=== PATIENT | female | born 1940 | race Caucasian/White ===

== ENCOUNTER 2018-09-22 11:06 | Inpatient (IN) | payer MEDICARE, OTHER ==
[2018-09-22] MEDS ORDERED: HYDROcodone/APAP 5-325MG 1 EACH TAB PO STA (11:56)
--- NOTE | 2018-09-22 12:19 | ED ---
General Adult HPI - General Chief complaint: Fall Stated complaint: fall, lt leg pain Time Seen by Provider: 09/22/18 11:15 Source: patient Mode of arrival: wheelchair Limitations: no limitations - History of Present Illness Initial comments: 78-year-old female presents to the emergency department for a chief complaint of fall that occurred about one week prior to arrival. Patient states she slipped and fell on the left hip. States she has been having pain in the left hip since that time. She has been walking on the hip and states that yesterday she went shopping and it may have irritated it more. Patient also complains of left knee pain which is lateral and anterior. She also believes this is from the fall. She denies any back pain. Denies hitting her head. Denies loss of consciousness.Patient has no other complaints at this time including shortness of breath, chest pain, abdominal pain, nausea or vomiting, headache, or visual changes. - Related Data Home Medications Medication Instructions Recorded Confirmed Sertraline [Zoloft] 50 mg PO HS 01/31/15 09/22/18 Simvastatin [Zocor] 20 mg PO HS 01/31/15 09/22/18 Triamterene-Hctz 37.5-25Mg 1 cap PO DAILY 01/31/15 09/22/18 [Dyazide] ALPRAZolam [Xanax] 0.5 mg PO DAILY 09/22/18 09/22/18 ALPRAZolam [Xanax] 1 mg PO HS 09/22/18 09/22/18 Acetaminophen/Diphenhydramine 2 tab PO HS 09/22/18 09/22/18 [Tylenol PM 500-25mg] Cholecalciferol [Vitamin D3] 1,000 unit PO DAILY 09/22/18 09/22/18 Naproxen Sodium [Aleve] 220 mg PO BID 09/22/18 09/22/18 Sertraline [Zoloft] 100 mg PO DAILY 09/22/18 09/22/18 Allergies Allergy/AdvReac Type Severity Reaction Status Date / Time Penicillins Allergy Unknown Verified 09/22/18 11:38 Review of Systems ROS Statement: Those systems with pertinent positive or pertinent negative responses have been documented in the HPI. ROS Other: All systems not noted in ROS Statement are negative. Past Medical History Past Medical History: Hyperlipidemia, Hypertension History of Any Multi-Drug Resistant Organisms: None Reported Past Surgical History: Appendectomy, Hysterectomy Past Psychological History: Anxiety, Depression Smoking Status: Current every day smoker Past Alcohol Use History: Occasional Past Drug Use History: None Reported - Past Family History Father Family Medical History: Myocardial Infarction ([place]) Additional Family Medical History / Comment(s): Father of a [place] at the age of 80yrs. Mother Family Medical History: Cancer Additional Family Medical History / Comment(s): Mother survived multiple types of cancers. General Exam Limitations: no limitations General appearance: alert, in no apparent distress Head exam: Present: atraumatic, normocephalic, normal inspection Eye exam: Present: normal appearance, PERRL, EOMI. Absent: scleral icterus, conjunctival injection, periorbital swelling ENT exam: Present: normal exam, mucous membranes moist Neck exam: Present: normal inspection, full ROM. Absent: tenderness, meningismus, lymphadenopathy Respiratory exam: Present: normal lung sounds bilaterally. Absent: respiratory distress, wheezes, rales, rhonchi, stridor Cardiovascular Exam: Present: regular rate, normal rhythm, normal heart sounds. Absent: bradycardia, tachycardia, irregular rhythm GI/Abdominal exam: Present: soft, normal bowel sounds. Absent: distended, tenderness, guarding, rebound, rigid Extremities exam: Present: tenderness (Minimal tenderness noted to the lateral aspect of the left hip and left anterior knee), normal capillary refill (Capillary refill less than 2 seconds, DP pulse 2+ in the left lower extremity), other (Sensation intact in the left lower extremity). Absent: full ROM (Patient has 90 of flexion of the left hip until she starts to have pain. Limited external rotation of the left hip. Full range of motion of the left knee.), calf tenderness (Tenderness, negative Homans sign, no erythema or edema noted in the left lower extremity) Back exam: Absent: CVA tenderness (R), CVA tenderness (L), vertebral tenderness Neurological exam: Present: alert, oriented X3, CN II-XII intact Psychiatric exam: Present: normal affect, normal mood Course Vital Signs 09/22/18 09/22/18 09/22/18 11:09 13:53 15:03 Temperature 97.7 F 98.2 F 98.1 F Pulse Rate 113 H 74 89 Respiratory 18 18 18 Rate Blood Pressure 137/79 133/60 142/63 O2 Sat by Pulse 94 L 93 L 95 Oximetry - Reevaluation(s) Reevaluation #1: 09/22/18 14:57 Offered patient IV pain medication which she refused. Patient did eventually degree to take an [place]. EKG Findings - EKG Comments: EKG Findings:: Normal sinus rhythm, ventricular rate 79, NC Interval 158, QTC 435 Medical Decision Making - Medical Decision Making 78-year-old female with a past medical history of hyperlipidemia, hypertension presents to the emergency department for chief complaint of left hip and knee pa in after a fall occurred 1 week ago. Patient has been ambulatory on the hip since that time. Patient was offered IV morphine but refused this. She did eventually agree to take a [place]. Patient does have pain when hip is flexed to 90 as well as externally rotated. Neurovascular intact, DP pulse 2+ and equal bilaterally. X-ray of the left hip shows a subacute left subcapital femoral neck impaction fracture. There appears to only be 2 mm of foreshortening and overall this is nondisplaced. CBC CMP chest x-ray and EKG were all obtained for surgery. Dr. Ayala was called by Dr. Cruz who will admit the patient for hip fracture. - Lab Data Result diagrams: 09/22/18 13:10 09/22/18 13:10 Disposition Clinical Impression: Hip fracture Disposition: ADMITTED IP TO THIS HOSP Condition: Good Is patient prescribed a controlled substance at d/c from ED?: No Time of Disposition: 13:25
--- NOTE | 2018-09-22 12:27 | XR ---
EXAMINATION TYPE: XR Hip LT and AP Pelvis DATE OF EXAM: 09/22/2018 COMPARISON: NONE HISTORY: Pelvic and left hip pain after fall 2 weeks ago. TECHNIQUE: A single AP view of the pelvis is obtained. Two views of the left hip are obtained. FINDINGS: There is an impacted left subcapital femoral neck fracture. There appears to be only 2 mm o f foreshortening. This is overall nondisplaced. The remainder the pelvis demonstrates no acute fractu re. 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 Mild degenerative changes of the lum bosacral junction are noted. IMPRESSION: Subacute left subcapital femoral neck impaction fracture.
--- NOTE | 2018-09-22 12:28 | XR ---
EXAMINATION TYPE: XR tibia fibula LT DATE OF EXAM: 09/22/2018 CLINICAL HISTORY: Left tibia and fibula pain after fall TECHNIQUE: Two views of the left leg are obtained. COMPARISON: None. FINDINGS: There is no acute fracture or dislocation seen in the left tibia or fibula. The left knee and ankle joints appear within normal limits. The overlying soft tissue appears unremarkable. IMPRESSION: There is no acute fracture or dislocation seen in the left tibia or fibula.
[2018-09-22] MEDS ORDERED: ONDANSETRON 4 MG/2 ML VIAL IVP PRN (13:22)
[2018-09-22] MEDS ORDERED: NALOXONE 0.4 MG/ML 1 ML VIAL IV PRN ×2 (13:22→19:55)
--- NOTE | 2018-09-22 13:33 | XR ---
EXAMINATION TYPE: XR chest 2V DATE OF EXAM: 09/22/2018 COMPARISON: 02/03/2014 HISTORY: Cough, chest pain and COPD TECHNIQUE: Frontal and lateral views of the chest are obtained. FINDINGS: There is no focal air space opacity, pleural effusion, or pneumothorax seen. Flattening of the diaphragms on the lateral view suggests underlying COPD. The cardiac silhouette size is within n ormal limits. Diffuse osseous demineralization is noted. The osseous structures are intact. Calcifi ed density within the left breast is noted as seen on the prior 2013. IMPRESSION: No acute cardiopulmonary process. Radiographic sequela of COPD.
[2018-09-22 13:34] LABS: Partial Thromboplastin Time 29.9 sec (22.0-30.0); Prothrombin Time 10.5 sec (9.0-12.0)
[2018-09-22 13:37] LABS: Basophils # (A) 0.1 k/uL (0-0.2); Basophils % (A) 1 %; Eosinophils # (A) 0.1 k/uL (0-0.7); Eosinophils % (A) 1 %; HCT 43.9 % (34.0-46.0); HGB 14.3 gm/dL (11.4-16.0); Lymphocytes # (A) 0.9 k/uL (1.0-4.8); Lymphocytes % (A) 10 %; MCH 29.1 pg (25.0-35.0); MCHC 32.5 g/dL (31.0-37.0); MCV 89.3 fL (80.0-100.0); Mean Platelet Volume 7.6; Monocytes # (A) 1.1 k/uL (0-1.0); Monocytes % (A) 12 %; Neutrophils # (A) 6.9 k/uL (1.3-7.7); Neutrophils % (A) 74 %; Platelet Count 301 k/uL (150-450); RBC 4.92 m/uL (3.80-5.40); RDW 13.7 % (11.5-15.5); WBC 9.3 k/uL (3.8-10.6)
[2018-09-22 13:44] LABS: ALT 21 U/L (9-52); AST 25 U/L (14-36); Albumin 4.5 g/dL (3.5-5.0); Alkaline Phosphatase 83 U/L (38-126); Anion Gap 13 mmol/L; Blood Urea Nitrogen 17 mg/dL (7-17); Calcium 9.6 mg/dL (8.4-10.2); Carbon Dioxide 21 mmol/L (22-30); Chloride 99 mmol/L (98-107); Glucose 92 mg/dL (74-99); Sodium 133 mmol/L (137-145); Total Bilirubin 0.8 mg/dL (0.2-1.3); Total Protein 7.8 g/dL (6.3-8.2)
[2018-09-22 13:46] LABS: Potassium 4.4 mmol/L (3.5-5.1)
[2018-09-22 15:16] VITALS: BMI 23.0
--- NOTE | 2018-09-22 15:35 | P.HPOR ---
History of Present Illness H&P Date: 09/22/18 Chief Complaint: Left hip pain s/p fall patient has very pleasant 78-year-old female who sustained a fall about a week and a half ago. She has had left hip pain since that time. She was just trying to let her dog out and turned and slipped and fell onto her left hip. She denies any loss of consciousness. Denies any her head. She has any prior pain in her hip before the fall. She says she is normally a community and later without any assistance or devices. She usually drives and gets around quite well. She has no history of any hip pain. She denies any numbness or tingling. She says that she was able to walk around over the past week and half but has been having irritation and pain at her left hip and decided to have this checked out. She presented to the emergency room and was found to have a nondisplaced impacted left femoral neck fracture. We are consult in in this regard. denies any fevers chills night sweats. Denies any headaches loss conscious. Denies any numbness tingling lower extremity. Denies any changes in bowel bladder function. Review of Systems as stated in HPI. Denies any chest pain shortness breath. Denies any abdominal pain. Denies any recent illness. Denies any nausea vomiting. She says she might have had a little cold yesterday. Past Medical History Past Medical History: Hyperlipidemia Additional Past Medical History / Comment(s): Past gastric ulcer, kidney stones as a teen, diverticular disease, past edema ankles, sinus problems. History of Any Multi-Drug Resistant Organisms: None Reported Past Surgical History: Appendectomy, Hysterectomy Additional Past Surgical History / Comment(s): Colonoscopies/benign polypectomy, L breast core bx, L elbow surgery for tennis elbow, L wrist ganglion cyst removed and bilateral feet, L tear duct procedure to get it open, lesion removed from nose-pt states one doctor said it was cancer and another said it wasn't. Past Anesthesia/Blood Transfusion Reactions: No Reported Reaction Past Psychological History: Anxiety, Depression Additional Psychological History / Comment(s): Pt resides with her significant other. She has been using his cane lately d/t fall and L hip/knee pain. Pt is otherwise independent. Smoking Status: Current every day smoker Past Alcohol Use History: Occasional Additional Past Alcohol Use History / Comment(s): Ptstarted smoking in 1964 and the amount she smokes varies depending on what she is doing. Past Drug Use History: None Reported - Past Family History Father Family Medical History: Myocardial Infarction ([place]) Additional Family Medical History / Comment(s): Father of a [place] at the age of 80yrs. Mother Family Medical History: Cancer Additional Family Medical History / Comment(s): Mother survived multiple types of cancers. Medications and Allergies Home Medications Medication Instructions Recorded Confirmed Type Sertraline [Zoloft] 50 mg PO HS 01/31/15 09/22/18 History Simvastatin [Zocor] 20 mg PO HS 01/31/15 09/22/18 History Triamterene-Hctz 37.5-25Mg 1 cap PO DAILY 01/31/15 09/22/18 History [Dyazide] ALPRAZolam [Xanax] 0.5 mg PO DAILY 09/22/18 09/22/18 History ALPRAZolam [Xanax] 1 mg PO HS 09/22/18 09/22/18 History Acetaminophen/Diphenhydramine 2 tab PO HS 09/22/18 09/22/18 History [Tylenol PM 500-25mg] Cholecalciferol [Vitamin D3] 1,000 unit PO DAILY 09/22/18 09/22/18 History Naproxen Sodium [Aleve] 220 mg PO BID 09/22/18 09/22/18 History Sertraline [Zoloft] 100 mg PO DAILY 09/22/18 09/22/18 History Allergies Allergy/AdvReac Type Severity Reaction Status Date / Time Penicillins Allergy Unknown Verified 09/22/18 11:38 Physical Examination Osteopathic Statement: *. No significant issues noted on an osteopathic structural exam other than those noted in the History and Physical/Consult. - Hip left Gait: other (at the patient's left hip she is able to move her hip in bed. She is able lift her leg up off the bed but has pain in her groin with this. She has pain with internal/external rotation her left hip. There is no deformity or shortening. Her thigh and calf are soft nontender. She has sustained dorsal to plantar flexion and EHL bilateral lower extremity. Her right lower extremity has no pain with active passive range motion. Abdomen soft nontender. Upper extremities have full active passive range motion. Neck is nontender to palpation range of motion. Chest has good excursion deep inspection expiration abdomen is soft nontender.) Results x-rays are reviewed of her left hip and pelvis. She has evidence of a femoral neck fracture there is impaction at the area there is no significant displacement no significant angulation. There is some mild osteopenia. Her joint spaces adequately maintained. - Labs Labs: Abnormal Lab Results - Last 24 Hours (Table) 09/22/18 09/22/18 Range/Units 13:10 13:10 Lymphocytes # 0.9 L (1.0-4.8) k/uL Monocytes # 1.1 H (0-1.0) k/uL Sodium 133 L (137-145) mmol/L Carbon Dioxide 21 L (22-30) mmol/L H & H 09/22/18 Range/Units 13:10 Hgb 14.3 (11.4-16.0) gm/dL Hct 43.9 (34.0-46.0) % Coagulation 09/22/18 Range/Units 13:10 INR 1.0 (<1.2) Result Diagrams: 09/22/18 13:10 09/22/18 13:10 - Diagnostic results Hip x-ray: report reviewed, image reviewed (x-rays of her left hip are reviewed which show a impacted left femoral neck fracture is transverse and well aligned.) Hip MRI: report reviewed, image reviewed Assessment and Plan Assessment: left hip femoral neck fracture status post fall, acute traumatic Impacted left femoral neck fracture in good alignment and position and neurovascularly intact Plan: left hip femoral neck fracture status post fall, acute traumatic Impacted left femoral neck fracture in good alignment and position and neurovascularly intact the patient sustained a fall and acute femoral neck fracture when she fell directly week and half ago. She has been able to mobilize with this despite her pain and the fracture has remained essentially nondisplaced. There is some impaction at the area. There is some diffuse osteopenia. She has been having worsening pain and difficulty ambulating due to the fracture. I think her best treatment option would be to pursue surgical intervention for fixation of her femoral neck fracture. We discussed the different treatment ranging from co nservative to surgical. She is at significant risk of displacement or nonunion if she does not pursue surgical intervention. She would be at significant risk of disc mobility if she were to go through conservative treatment and I think surgery is the best option for her. This would give her the best chance of keeping the alignment and position of the fracture while allowing her to mobilize further. I think that her best surgical option would be to pursue in situ hip pinning as the fracture appears to be essentially none displaced. If we can get the fracture to heal she will return able to retain her [place] hip. We discussed the possibility of hemiarthroplasty or partial hip replacement given that her blood spine may be compromised but I think that it is worthwhile for her to pursue in situ hip pinning at this point. I discussed the nature of her injury. I discussed the risk of her injury including loss of ambulation loss of mobilization displacement of her fracture. I discussed the different treatment options including surgery. The risks, occasions surgery including but not limited to risk of bleeding risk infection was need for further surgery risk of decreased loss of motion loss of function malunion nonunion hardware failure nerve damage as well as the fact that surgery may not alleviate her symptoms was explained to her we answered all of her questions and all of her and sons questions to the best my ability C can understand and they're electing proceed with surgical intervention as soon as they can. She is going to be seen by medicine service for appropriate clearance and we'll plan for possible surgical intervention today. We will keep him nothing by mouth. Time with Patient: Greater than 30
[2018-09-22] MEDS: MORPHINE SULFATE 2 MG/ML SYRINGE IV PRN (16:09)
[2018-09-22] MEDS ORDERED: IPRATROPIUM-ALBUTEROL 3 ML NEB INHALATION PRN (16:12)
--- NOTE | 2018-09-22 16:18 | P.CONS ---
History of Present Illness - Reason for Consult Consult date: 09/22/18 medical managemtn, preop clearance Requesting physician: Flavia Ayala - Chief Complaint Fall on left hip, fracture - History of Present Illness This is a pleasant 70 H FEMALE patient of Dr. Marshall Asencio. She has underlying history of hyperlipidemia, intermittent edema, chronic tobacco use, possible COPD osteoarthritis admitted to the emergency room secondary to left subacute subcapital femoral neck impacted fracture, requiring intramedullary nailing by Dr. Ayala later today at 6 PM, we are requested to see her for preoperative clearance and medical management, apparently patient fell approximately 12 days prior to admission, patient turn, she thought that her knee got weak, and fell down on the left hip. Patient denies any head concussion, no no syncope, no au anthony, patient denies any localized motor weakness in the extremities preceding this., No neuropathic pain. Patient denies any history of ischemic heart disease, or CHF no previous history of CVA, denies any valvular heart disease in the past, creatinine is normal at 0.062. No urinalysis was done, INR of 1.0 Pre-op clearance for today, EKG shows normal sinus rhythm, nonspecific ST-T wave changes or pathologic Q waves, normal QT prolongation, patient has an upper respiratory cough that started today, patient does not have any wheezing episodes, no purulence, patient denies any preanesthetic or post anesthetic problems, no history of PUD VTE the past. She would have an ASA risk score of 2, and RCRI score of 0. Surgical MACE score risk of 1-5%. She is preemptively cleared for surgery. Review of Systems Constitutional: Reports as per HPI, Denies anorexia, Denies chills, Denies chronic headaches, Denies chronic pain, Denies daytime sleepiness, Denies fatigue, Denies fever, Denies lethargy, Denies malaise, Denies night sweats, Denies poor appetite, Denies sweats, Denies weakness, Denies weight gain, Denies weight loss Ears, nose, mouth and throat: Reports as per HPI Cardiovascular: Reports as per HPI Respiratory: Reports as per HPI, Reports cough, Denies congestion, Denies cough with sputum, Denies dyspnea, Denies excessive sputum, Denies hemoptysis, Denies home oxygen, Denies pain, Denies pain on inspiration, Denies pleurisy, Denies respiratory infections, Denies sleep apnea, Denies snoring, Denies wheezing Gastrointestinal: Reports as per HPI Genitourinary: Reports as per HPI Menstruation: Reports as per HPI Musculoskeletal: Reports as per HPI Integumentary: Reports as per HPI Neurological: Reports as per HPI, Denies aphasia, Denies ataxia, Denies balance difficulties, Denies burning pain, Denies change in mentation, Denies change in smell/taste, Denies change in speech, Denies confusion, Denies convulsions, Denies double vision, Denies gait dysfunction, Denies head injury, Denies headaches, Denies hearing difficulties, Denies lack of coordination, Denies loss of vision, Denies memory loss, Denies migraines, Denies motor disturbance, Denies numbness, Denies paralysis, Denies paresthesias, Denies seizures, Denies sensory deficit, Denies spasticity, Denies syncope, Denies tic, Denies tingling, Denies transient paralysis, Denies tremors, Denies vertigo, Denies weakness, Denies visual changes Psychiatric: Reports as per HPI, Denies anhedonia, Denies anxiety, Denies an xiety attacks, Denies change in appetite, Denies change in libido, Denies change in sleep habits, Denies confusion, Denies depression, Denies difficulty concentrating, Denies disorientation, Denies hallucinations, Denies hopelessness, Denies hypersomnia, Denies insomnia, Denies irritability, Denies memory loss, Denies mood swings, Denies paranoia, Denies sadness/tearfulness, Denies sleep disturbances, Denies suicidal ideation Endocrine: Reports as per HPI Hematologic/Lymphatic: Reports as per HPI Allergic/Immunologic: Reports as per HPI Past Medical History Past Medical History: Hyperlipidemia Additional Past Medical History / Comment(s): Past gastric ulcer, kidney stones as a teen, diverticular disease, past edema ankles, sinus problems. History of Any Multi-Drug Resistant Organisms: None Reported Past Surgical History: Appendectomy, Hysterectomy Additional Past Surgical History / Comment(s): Colonoscopies/benign polypectomy, L breast core bx, L elbow surgery for tennis elbow, L wrist ganglion cyst removed and bilateral feet, L tear duct procedure to get it open, lesion removed from nose-pt states one doctor said it was cancer and another said it wasn't. Past Anesthesia/Blood Transfusion Reactions: No Reported Reaction Past Psychological History: Anxiety, Depression Additional Psychological History / Comment(s): Pt resides with her significant other. She has been using his cane lately d/t fall and L hip/knee pain. Pt is otherwise independent. Smoking Status: Current every day smoker Past Alcohol Use History: Occasional Additional Past Alcohol Use History / Comment(s): Ptstarted smoking in 1964 and the amount she smokes varies depending on what she is doing. Past Drug Use History: None Reported - Past Family History Father Family Medical History: Myocardial Infarction (DC) Additional Family Medical History / Comment(s): Father of a DC at the age of 80yrs. Mother Family Medical History: Cancer Additional Family Medical History / Comment(s): Mother survived multiple types of cancers. Medications and Allergies Home Medications Medication Instructions Recorded Confirmed Type Sertraline [Zoloft] 50 mg PO HS 01/31/15 09/22/18 History Simvastatin [Zocor] 20 mg PO HS 01/31/15 09/22/18 History Triamterene-Hctz 37.5-25Mg 1 cap PO DAILY 01/31/15 09/22/18 History [Dyazide] ALPRAZolam [Xanax] 0.5 mg PO DAILY 09/22/18 09/22/18 History ALPRAZolam [Xanax] 1 mg PO HS 09/22/18 09/22/18 History Acetaminophen/Diphenhydramine 2 tab PO HS 09/22/18 09/22/18 History [Tylenol PM 500-25mg] Cholecalciferol [Vitamin D3] 1,000 unit PO DAILY 09/22/18 09/22/18 History Naproxen Sodium [Aleve] 220 mg PO BID 09/22/18 09/22/18 History Sertraline [Zoloft] 100 mg PO DAILY 09/22/18 09/22/18 History Allergies Allergy/AdvReac Type Severity Reaction Status Date / Time Penicillins Allergy Unknown Verified 09/22/18 11:38 Physical Exam Vitals: Vital Signs Temp Pulse Resp BP Pulse Ox 09/22/18 15:03 98.1 F 89 18 142/63 95 09/22/18 13:53 98.2 F 74 18 133/60 93 L 09/22/18 11:09 97.7 F 113 H 18 137/79 94 L Intake and Output 09/22/18 09/22/18 09/22/18 06:59 14:59 22:59 Other: Weight 58.967 kg - Constitutional General appearance: average body habitus, cooperative, no acute distress - EENT Eyes: anicteric sclerae, EOMI, PERRLA, dentition normal ENT: NA/AT, normal oropharynx - Neck Neck: normal ROM - Respiratory Respiratory: bilateral: CTA, negative: diminished, dullness, rales, rhonchi - Cardiovascular Rhythm: regular Heart sounds: normal: S1, S2 Abnormal Heart Sounds: no systolic murmur, no diastolic murmur, no rub, no S3 Gallop, no S4 Gallop, no click, no other - Gastrointestinal General gastrointestinal: normal bowel sounds, soft - Integumentary Integumentary: decreased turgor, normal - Neurologic Neurologic: CNII-XII intact - Musculoskeletal Musculoskeletal: gait normal, strength equal bilaterally - Psychiatric Psychiatric: A&O x's 3, appropriate affect Dorsalis pedis pulses are equal bounding, no edema, patient does not have cellulitis of broken skin no bruises noted on the left hip left shoulder and left elbows and the head Results CBC & Chem 7: 09/22/18 13:10 09/22/18 13:10 Labs: Abnormal Lab Results - Last 24 Hours (Table) 09/22/18 09/22/18 Range/Units 13: 13:10 Lymphocytes # 0.9 L (1.0-4.8) k/uL Monocytes # 1.1 H (0-1.0) k/uL Sodium 133 L (137-145) mmol/L Carbon Dioxide 21 L (22-30) mmol/L Laboratory Results WBC 9.3 k/uL (3.8-10.6) 09/22/18 13:10 RBC 4.92 m/uL (3.80-5.40) 09/22/18 13:10 Hgb 14.3 gm/dL (11.4-16.0) 09/22/18 13:10 Hct 43.9 % (34.0-46.0) 09/22/18 13:10 MCV 89.3 fL (80.0-100.0) 09/22/18 13:10 MCH 29.1 pg (25.0-35.0) 09/22/18 13:10 MCHC 32.5 g/dL (31.0-37.0) 09/22/18 13:10 RDW 13.7 % (11.5-15.5) 09/22/18 13:10 Plt Count 301 k/uL (150-450) 09/22/18 13:10 Neutrophils % 74 % 09/22/18 13:10 Lymphocytes % 10 % 09/22/18 13:10 Monocytes % 12 % 09/22/18 13:10 Eosinophils % 1 % 09/22/18 13:10 Basophils % 1 % 09/22/18 13:10 Neutrophils # 6.9 k/uL (1.3-7.7) 09/22/18 13:10 Lymphocytes # 0.9 k/uL (1.0-4.8) L 09/22/18 13:10 Monocytes # 1.1 k/uL (0-1.0) H 09/22/18 13:10 Eosinophils # 0.1 k/uL (0-0.7) 09/22/18 13:10 Basophils # 0.1 k/uL (0-0.2) 09/22/18 13:10 PT 10.5 sec (9.0-12.0) 09/22/18 13:10 INR 1.0 (<1.2) 09/22/18 13:10 APTT 29.9 sec (22.0-30.0) 09/22/18 13:10 Sodium 133 mmol/L (137-145) L 09/22/18 13:10 Potassium 4.4 mmol/L (3.5-5.1) 09/22/18 13:10 Chloride 99 mmol/L (98-107) 09/22/18 13:10 Carbon Dioxide 21 mmol/L (22-30) L 09/22/18 13:10 Anion Gap 13 mmol/L 09/22/18 13:10 BUN 17 mg/dL (7-17) 09/22/18 13:10 Creatinine 0.62 mg/dL (0.52-1.04) 09/22/18 13:10 Est GFR (CKD-EPI)AfAm >90 (>60 ml/min/1.73 sqM) 09/22/18 13:10 Est GFR (CKD-EPI)NonAf 87 (>60 ml/min/1.73 sqM) 09/22/18 13:10 Glucose 92 mg/dL (74-99) 09/22/18 13:10 Calcium 9.6 mg/dL (8.4-10.2) 09/22/18 13:10 Total Bilirubin 0.8 mg/dL (0.2-1.3) 09/22/18 13:10 AST 25 U/L (14-36) 09/22/18 13:10 ALT 21 U/L (9-52) 09/22/18 13:10 Alkaline Phosphatase 83 U/L (38-126) 09/22/18 13:10 Total Protein 7.8 g/dL (6.3-8.2) 09/22/18 13:10 Albumin 4.5 g/dL (3.5-5.0) 09/22/18 13:10 Assessment and Plan Plan: 1. 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 Check UA reflex to culture 2. Underlying COPD is suspected, no formal diagnosis per PCP, patient has a nebulizer which she did not require for the past 3 months, patient will be given albuterol when necessary as well as incentive spirometry, counseled on smoking cessation 3 Acute URI, symptoms of one day, no oral antibiotics needed, we'll monitor for progression of symptoms, incentive spirometry and chest x-ray no acute pulmonary process 4 Intermittent edema currently controlled on maintenance Dyazide, Dyazide will be held for today, and condition within the next 24-48 hours, avoid hypotension 5 Hyperlipidemia on statins can be resumed post op, monitor for rhabdo and myositis related to statin use CPK to be done, 6. 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 Ayala in allowing us to participate in the care. Patient. We are going to follow her with you during this current hospital stay, recommendations to her treatment would be based on her clinical progress, we are going to follow closely.
[2018-09-22] MEDS ORDERED: LACTATED RINGERS 1,000 ML IV ONE ×2 (18:40)
[2018-09-22] MEDS ORDERED: PHENYLEPHRINE-0.9% NACL SYG 1 MG/10 ML SYRINGE ONE (18:41)
[2018-09-22] MEDS ORDERED: PROPOFOL 10 MG/ML 20 ML VIAL IV ONE (18:41)
[2018-09-22] MEDS ORDERED: KETAMINE 10 MG/ML 20 ML VIAL ONE (18:41)
[2018-09-22] MEDS ORDERED: MIDAZOLAM 2 MG/2 ML VIAL ONE (18:41)
[2018-09-22] MEDS ORDERED: CLINDAMYCIN 150 MG/ML 4 ML VIAL IVPB ONE (18:55)
[2018-09-22] MEDS ORDERED: MAGNESIUM HYDROXIDE 2,400 MG/10 ML CUP PO PRN (19:55)
--- NOTE | 2018-09-22 20:06 | P.OP ---
Date of Procedure: 09/22/18 Preoperative Diagnosis: Left hip impacted minimally displaced femoral neck fracture Postoperative Diagnosis: Same Anesthesia: spinal Pathology: other (Reamings of femoral neck and head sent to pathology) Condition: stable Disposition: PACU Description of Procedure: Preoperative diagnosis: Left hip femoral neck impacted minimally displaced fracture Postoperative diagnosis: Same Procedure: Pinning of left femoral neck fracture Use of fluoroscopic guidance reduction of femoral neck fracture Surgeon: Dr. Jamie Lorenzt.: None Anesthesia: Spinal per Dr. Cameron Estimated blood loss: Approximately 30 mL Components implanted: Magna fix 7.0 cannulated short thread screws 3 measuring 80 and 85 mm Disposition: To recovery room in good stable condition Operative indications The patient sustained a injury and suffered a hip fracture at the femoral neck area area of her femur which was impacted and minimally displaced. We were involved in the case in regard to his hip fracture. The patient had sustained a fall about a week and half ago and was actually walking around on her left hip with soreness being full weightbearing. She continued to have some pain and decided to be evaluated in the emergency room where she was found to have a minimally displaced impacted femoral neck fracture. After evaluation it was determined that they would be a candidate for hip internal fixation and stabilization via surgical intervention. This would give them the best chance of mobilization and ambulation. We discussed the range of treatment options from conservative to surgical. They elected proceed with surgical intervention. We answered their questions to the best of our ability healing which they can understand. They signed an informed consent. Operative summary After obtaining informed consent evaluation by anesthesia, preoperative evaluation and clearance for medical service, the patient was identified and prepped [place] area and the surgical site was marked. There brought to the operating room where the given appropriate anesthesia by the anesthesia department in standard fashion without any complications. Once the anesthesia was established we were able to position the patient. The patient was placed on a fracture table with a well-padded perineal post. The operative side was placed in a foot clark stirrup which was well-padded well molded and placed in gentle in-line traction. The nonoperative leg was placed in a padded stirrup. C-arm was brought in and we performed a closed reduction technique at the hip. The hip remained in a good stable alignment and position with impaction. We are able to get good alignment good position of the femoral neck fracture utilizing the fracture table. Once patient was well positioned lower extremity was prepped and draped in normal standard sterile fashion. An appropriate keystone protocol and timeout was completed and were able to proceed with surgery. C-arm guidance was utilized to establish the appropriate starting area at the lateral aspect of the greater trochanter. I dissected down to the area appropriately some small hematoma was evacuated. The wound was irrigated and suctioned dry. A starting point was established at the lateral aspect of the greater trochanter and I was able to drive a guidewire in good position and alig nment into the femoral neck across the fracture and into the femoral head. This was checked on biplanar C-arm and had excellent alignment and position. Placed a targeting guide to establish to other guide pins into the femoral neck and head. All the pins were in good alignment and good position with good encasement of the femoral neck and subcortical in the femoral head. The position was checked with C-arm guidance. I was then able to measure the pins for appropriate screw sizing. I was able to use a cannulated drill and establish drill holes over the guidepins and the appropriate length screw was then placed over the guidepin across the fracture into the femoral head. It was seated well and had good bite with good purchase and excellent position within the femoral neck and head and across the fracture. There is no evidence of any protrusion beyond the femoral head. The screw threads were encased within the femoral head well, and did not cross the fracture site themselves distally. This was done with 3 magna fix screws. They'll have good purchase alignment and position. The fracture appeared to be well stabilized and final imaging was done. The wound was copiously irrigated and suctioned dry. We will proceed with closure. The fascia was closed with #1 Vicryl. She relates tissue was closed with 2-0 Vicryl subcuticular tissue was closed with 3- 0 Vicryl wound is clean dry dressed with Dermabond for a watertight closure. The Dermabond dried we placed gauze and tape over the site. Drapes were broken down, the hip was held in stable position with the post being removed safely once the positioning was stabilized. The patient was then transferred back to their hospital bed being careful to maintain the hip and C- spine alignment and airway. Once stable to patient was transferred back to the postanesthesia care unit to be readmitted for pain control and DVT prophylaxis medical management and monitoring and mobilization we will continue follow patient closely throughout their postoperative course.
[2018-09-22] MEDS: SODIUM CHLORIDE 0.9% 1,000 ML IV SCH (21:05)
[2018-09-22] MEDS: PANTOPRAZOLE 40 MG/10 ML VIAL IVP SCH (21:05)
[2018-09-22] MEDS: ALPRAZolam 1 MG TAB PO SCH (21:06)
[2018-09-22] MEDS: SERTRALINE 50 MG TAB PO SCH (21:06)
[2018-09-22 21:45] LABS: Basophils # (A) 0.1 k/uL (0-0.2); Basophils % (A) 1 %; Eosinophils # (A) 0.1 k/uL (0-0.7); Eosinophils % (A) 2 %; HCT 43.9 % (34.0-46.0); HGB 13.9 gm/dL (11.4-16.0); Lymphocytes # (A) 1.1 k/uL (1.0-4.8); Lymphocytes % (A) 13 %; MCH 28.8 pg (25.0-35.0); MCHC 31.6 g/dL (31.0-37.0); Mean Platelet Volume 7.6; Monocytes # (A) 1.1 k/uL (0-1.0); Monocytes % (A) 14 %; Neutrophils # (A) 5.7 k/uL (1.3-7.7); Neutrophils % (A) 68 %; Platelet Count 274 k/uL (150-450); RBC 4.82 m/uL (3.80-5.40); RDW 13.7 % (11.5-15.5); WBC 8.4 k/uL (3.8-10.6)
--- NOTE | 2018-09-22 22:22 | FL ---
EXAMINATION TYPE: FL guidance operating room, XR Hip Limited LT DATE OF EXAM: 09/22/2018 CLINICAL HISTORY: Left hip fracture. TECHNIQUE: Fluoroscopy. COMPARISON: Same day pelvic and left hip x-ray.. FINDINGS: Fluoroscopic guidance was provided during left hip open reduction internal fixation proced ure performed by Dr. Ayala. A total of 42 seconds of fluoroscopic time was utilized during the proce dure and 2 spot fluoroscopic intraoperative images are acquired. Intraoperative images acquired show placement of 3 wires fixating screws through subcapital fracture of left proximal femur. Alignment is maintained on the intraoperative images obtained. IMPRESSION: As Above.
[2018-09-22] MEDS: CLINDAMYCIN 900 MG in DEXTROSE 5% IN WATER 50 ML IVPB SCH ×2 (23:24)
[2018-09-23] MEDS: MORPHINE SULFATE 2 MG/ML SYRINGE IV PRN ×3 (02:30→16:43)
[2018-09-23] MEDS: SODIUM CHLORIDE 0.9% 1,000 ML IV SCH ×2 (03:54→17:27)
[2018-09-23] MEDS: HYDROcodone/APAP 5-325MG 1 EACH TAB PO PRN ×3 (05:03→21:11)
[2018-09-23] MEDS: CLINDAMYCIN 900 MG in DEXTROSE 5% IN WATER 50 ML IVPB SCH ×2 (05:53)
[2018-09-23] MEDS: NICOTINE 14MG/24HR PATCH TRANSDERM SCH (07:30)
[2018-09-23] MEDS: ALPRAZolam 0.5 MG TAB PO SCH (07:30)
[2018-09-23] MEDS: PANTOPRAZOLE 40 MG/10 ML VIAL IVP SCH (07:30)
[2018-09-23] MEDS: CHOLECALCIFEROL 1,000 UNIT TAB PO SCH (07:30)
[2018-09-23] MEDS: SERTRALINE 100 MG TAB PO SCH (07:31)
[2018-09-23 08:25] LABS: Basophils % (A) 0 %; Eosinophils # (A) 0.1 k/uL (0-0.7); Eosinophils % (A) 1 %; HCT 39.8 % (34.0-46.0); HGB 13.1 gm/dL (11.4-16.0); Lymphocytes # (A) 0.9 k/uL (1.0-4.8); Lymphocytes % (A) 12 %; MCH 29.7 pg (25.0-35.0); MCHC 32.8 g/dL (31.0-37.0); MCV 90.5 fL (80.0-100.0); Mean Platelet Volume 7.3; Monocytes % (A) 14 %; Neutrophils # (A) 5.5 k/uL (1.3-7.7); Neutrophils % (A) 72 %; Platelet Count 258 k/uL (150-450); RDW 13.7 % (11.5-15.5); WBC 7.7 k/uL (3.8-10.6)
[2018-09-23 08:42] LABS: Anion Gap 11 mmol/L; Blood Urea Nitrogen 14 mg/dL (7-17); Calcium 8.9 mg/dL (8.4-10.2); Carbon Dioxide 25 mmol/L (22-30); Chloride 100 mmol/L (98-107); Creatine Kinase 32 U/L (30-135); Glucose 88 mg/dL (74-99); Potassium 3.6 mmol/L (3.5-5.1); Sodium 136 mmol/L (137-145)
--- NOTE | 2018-09-23 09:01 | P.PN ---
Subjective Progress Note Date: 09/23/18 Principal diagnosis: Femoral neck fracture left hip. Status post in situ pinning left hip. This is a 78-year-old female who is status post in situ pinning of the left hip for femoral neck fracture. She is doing well from an orthopedic standpoint. She states that she did have some pain through the night. She has no new complaints or concerns today. Vital signs and labs are stable. Objective - Vital Signs Vital signs: Vital Signs Temp 99.3 F 09/23/18 07:33 Pulse 83 09/23/18 07:33 Resp 16 09/23/18 07:33 BP 124/71 09/23/18 07:33 Pulse Ox 96 09/23/18 07:33 Intake & Output 09/22/18 09/23/18 09/23/18 18:59 06:59 18:59 Intake Total 500 300 200 Output Total 30 Balance 500 270 200 Weight 58.967 kg Intake: IV 500 0 Oral 300 200 Output: Estimated Blood Loss 30 Other: # Voids 1 - Exam This is a pleasant 78-year-old female in no acute distress. She is alert and oriented 3. Exam of her left hip reveals that her dressing is clean, dry and intact. She is able to lift her left leg off the bed independently with mild pain. Full foot and ankle motion without difficulty or pain. Neurovascular status to the lower extremity is intact. - Labs CBC & Chem 7: 09/23/18 06:54 09/23/18 06:54 Labs: Abnormal Lab Results - Last 24 Hours (Table) 09/22/18 09/22/18 09/22/18 Range/Units 13:10 13:10 21:21 Lymphocytes # 0.9 L (1.0-4.8) k/uL Monocytes # 1.1 H 1.1 H (0-1.0) k/uL Sodium 133 L (137-145) mmol/L Carbon Dioxide 21 L (22-30) mmol/L 09/23/18 09/23/18 Range/Units 06:54 06:54 Lymphocytes # 0.9 L (1.0-4.8) k/uL Monocytes # (0-1.0) k/uL Sodium 136 L (137-145) mmol/L Carbon Dioxide (22-30) mmol/L Assessment and Plan (1) Status post closed reduction with internal fixation Current Visit: Yes Status: Acute Code(s): Z98.890 - OTHER SPECIFIED POS TPROCEDURAL STATES SNOMED Code(s): 878072291 (2) Hip fracture Current Visit: Yes Status: Acute Code(s): S72.009A - FRACTURE OF UNSP PART OF NECK OF UNSP FEMUR, INIT SNOMED Code(s): 371996052 Plan: The clinical findings are discussed with the patient. We will start to get her up today with physical therapy. It is discussed that she may be discharged to home when she feels ready and is cleared medically. Continue care.
[2018-09-23] MEDS ORDERED: AZITHROMYCIN 500 MG TAB PO STA (11:18)
[2018-09-23] MEDS: methylPREDNISolone SOD SUCCI 125 MG/2 ML VIAL IV SCH ×2 (12:33→17:27)
--- NOTE | 2018-09-23 15:02 | P.PN ---
Subjective Progress Note Date: 09/23/18 This is a pleasant 70 H FEMALE patient of Dr. Marshall Asencio. She has underlying history of hyperlipidemia, intermittent edema, chronic tobacco use, possible COPD osteoarthritis admitted to the emergency room secondary to left subacute subcapital femoral neck impacted fracture, requiring intramedullary nailing by Dr. Ayala later today at 6 PM, we are requested to see her for preoperative clearance and medical management, apparently patient fell approximately 12 days prior to admission, patient turn, she thought that her knee got weak, and fell down on the left hip. Patient denies any head concussion, no no syncope, no auras, patient denies any localized motor weakness in the extremities preceding this., No neuropathic pain. Patient denies any history of ischemic heart disease, or CHF no previous history of CVA, denies any valvular heart disease in the past, creatinine is normal at 0.062. No urinalysis was done, INR of 1.0 Pre-op clearance for today, EKG shows normal sinus rhythm, nonspecific ST-T wave changes or pathologic Q waves, normal QT prolongation, patient has an upper respiratory cough that started today, patient does not have any wheezing episodes, no purulence, patient denies any preanesthetic or post anesthetic problems, no history of PUD VTE the past. She would have an ASA risk score of 2, and RCRI score of 0. Surgical MACE score risk of 1-5%. She is preemptively cleared for surgery. 09/23: Patient complains of cough this morning and is more congestion. A azith romycin will be added as well as Pulmicort and 2 doses of IV Solu-Medrol. Melatonin added for sleep. She has been afebrile, heart rate in the 80s, blood pressure 124/71, pulse ox 96% on room air. White count is normal at 7.7, hemoglobin 13.1, creatinine 0.72. Review of Systems Constitutional: Denies anorexia, Denies chills, Denies chronic headaches, De nies chronic pain, Denies daytime sleepiness, Denies fatigue, Denies fever, Denies lethargy, Denies malaise, Denies night sweats, Denies poor appetite, Denies sweats, Denies weakness, Denies weight gain, Denies weight loss Ears, nose, mouth and throat: Reports as per HPI Cardiovascular: Denies chest pain, denies palpitations, denies lightheadedness Respiratory: Reports as per HPI, Reports cough, Denies congestion, reports cough with sputum, Denies dyspnea, Denies excessive sputum, Denies hemoptysis, Denies home oxygen, Denies pain, Denies pain on inspiration, Denies pleurisy, Denies respiratory infections, Denies sleep apnea, Denies snoring, Denies wheezing Gastrointestinal: Reports as per HPI Genitourinary: Reports as per HPI Menstruation: Reports as per HPI Musculoskeletal: Reports as per HPI Integumentary: Reports as per HPI Neurological: Reports as per HPI, Denies aphasia, Denies ataxia, Denies balance difficulties, Denies burning pain, Denies change in mentation, Denies change in smell/taste, Denies change in speech, Denies confusion, Denies convulsions, Denies double vision, Denies gait dysfunction, Denies head injury, Denies headaches, Denies hearing difficulties, Denies lack of coordination, Denies loss of vision, Denies memory loss, Denies migraines, Denies motor disturbance, Denies numbness, Denies paralysis, Denies paresthesias, Denies seizures, Denies sensory deficit, Denies spasticity, Denies syncope, Denies tic, Denies tingling, Denies transient paralysis, Denies tremors, Denies vertigo, Denies weakness, Denies visual changes Psychiatric: Reports as per HPI, Denies anhedonia, Denies anxiety, Denies anxiety attacks, Denies change in appetite, Denies change in libido, Denies change in sleep habits, Denies confusion, Denies depression, Denies difficulty concentrating, Denies disorientation, Denies hallucinations, Denies hopelessness, Denies hypersomnia, Denies insomnia, Denies irritability, Denies memory loss, Denies mood swings, Denies paranoia, Denies sadness/tearfulness, Denies sleep disturbances, Denies suicidal ideation Endocrine: Reports as per HPI Hematologic/Lymphatic: Reports as per HPI Allergic/Immunologic: Reports as per HPI Objective - Vital Signs Vital signs: Vital Signs Temp 99.3 F 09/23/18 07:33 Pulse 83 09/23/18 07:33 Resp 16 09/23/18 07:33 BP 124/71 09/23/18 07:33 Pulse Ox 96 09/23/18 07:33 Intake & Output 09/22/18 09/23/18 09/23/18 18:59 06:59 18:59 Intake Total 500 300 200 Output Total 30 Balance 500 270 200 Weight 58.967 kg Intake: IV 500 0 Oral 300 200 Output: Estimated Blood Loss 30 Other: # Voids 1 - Exam General appearance: average body habitus, cooperative, no acute distress - EENT Eyes: anicteric sclerae, EOMI, PERRLA, dentition normal ENT: NA/AT, normal oropharynx - Neck Neck: normal ROM - Respiratory Respiratory: bilateral: Bilateral wheezing, negative: diminished, dullness, rales, rhonchi - Cardiovascular Rhythm: regular Heart sounds: normal: S1, S2 Abnormal Heart Sounds: no systolic murmur, no diastolic murmur, no rub, no S3 Gallop, no S4 Gallop, no click, no other - Gastrointestinal General gastrointestinal: normal bowel sounds, soft - Integumentary Integumentary: decreased turgor, normal - Neurologic Neurologic: CNII-XII intact - Musculoskeletal Musculoskeletal: gait normal, strength equal bilaterally - Psychiatric Psychiatric: A&O x's 3, appropriate affect Dorsalis pedis pulses are equal bounding, no edema, patient does not have cellu litis of broken skin no bruises noted on the left hip left shoulder and left elbows and the head - Labs CBC & Chem 7: 09/23/18 06:54 09/23/18 06:54 Labs: Abnormal Lab Results - Last 24 Hours (Table) 09/22/18 09/22/18 09/22/18 Range/Units 13:10 13:10 21:21 Lymphocytes # 0.9 L (1.0-4.8) k/uL Monocytes # 1.1 H 1.1 H (0-1.0) k/uL Sodium 133 L (137-145) mmol/L Carbon Dioxide 21 L (22-30) mmol/L 09/23/18 09/23/18 Range/Units 06:54 06:54 Lymphocytes # 0.9 L (1.0-4.8) k/uL Monocytes # (0-1.0) k/uL Sodium 136 L (137-145) mmol/L Carbon Dioxide (22-30) mmol/L Assessment and Plan Plan: 1. 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 Continue incentive spirometry, opiat es for pain, bowel program, GI prophylaxis, weightbearing status per orthopedic surgery. 2. Underlying COPD is suspected, continue nebulizer treatments, Pulmicort, Solu-Medrol IV 2 doses, azithromycin ordered. 3. Acute URI, symptoms of one day, continue azithromycin, Solu-Medrol, Pulmicort, DuoNeb, incentive spirometry 4 Intermittent edema currently controlled on maintenance Dyazide, Dyazide will be held for today, and condition within the next 24-48 hours, avoid hypotension 5 Hyperlipidemia on statins can be resumed post op, monitor for rhabdo and myositis related to statin use CPK to be done, 6. 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, with possible fragility fractures, unknown last bone density, we'll going to start vitamin D, outpatient bone density is recommended for surveillance 8 Tobacco use, currently a tobacco user at one half to one pack per day, patient wants to try a nicotine patches while in the hospital, albuterol when necessary 9 NSAID use prior to admission, this will be held, and can be resumed post op, no current evidence of GI losses DVT prophylaxis patient will be on aspirin 81 mg twice a day to after 2-4 weeks depending on weightbearing status GI prophylaxis IV Protonix Discharge plan: [facility] or [place] with home care Impression and plan of care have been directed as dictated by the signing physician. Josiane Orozco nurse practitioner acting as scribe for signing physician.
[2018-09-23] MEDS: BUDESONIDE 0.5 MG/2 ML NEBU INHALATION SCH (20:38)
[2018-09-23] MEDS ORDERED: MELATONIN 3 MG TABLET PO SCH (21:00)
[2018-09-23] MEDS: ALPRAZolam 1 MG TAB PO SCH (21:11)
[2018-09-23] MEDS: SERTRALINE 50 MG TAB PO SCH (21:11)
[2018-09-24] MEDS: SODIUM CHLORIDE 0.9% 1,000 ML IV SCH (03:32)
[2018-09-24] MEDS: SERTRALINE 100 MG TAB PO SCH (07:52)
[2018-09-24] MEDS: HYDROcodone/APAP 5-325MG 1 EACH TAB PO PRN ×2 (07:52→14:29)
[2018-09-24] MEDS: CHOLECALCIFEROL 1,000 UNIT TAB PO SCH (07:52)
[2018-09-24] MEDS: NICOTINE 14MG/24HR PATCH TRANSDERM SCH (07:52)
[2018-09-24] MEDS: ALPRAZolam 0.5 MG TAB PO SCH (07:53)
[2018-09-24] MEDS: BUDESONIDE 0.5 MG/2 ML NEBU INHALATION SCH (08:45)
[2018-09-24 08:47] VITALS: RESP 16
[2018-09-24] MEDS ORDERED: AZITHROMYCIN 250 MG TAB PO SCH (09:00)
[2018-09-24] MEDS ORDERED: PANTOPRAZOLE 40 MG TABLET PO SCH (09:00)
[2018-09-24 09:19] VITALS: BP 141/57; PULSE 85; TEMP 97.6
--- NOTE | 2018-09-24 11:40 | P.DS ---
Providers Date of admission: 09/22/18 13:05 Expected date of discharge: 09/24/18 Attending physician: Flavia Ayala Consults: 09/22/18 13:22 Consult Physician Stat Consulting Provider: Guillermina Tuttle Consult Reason/Comments: subacute femoral neck fracture Do you want consulting provider notified?: Yes Primary care physician: Antoine Rojo - Discharge Diagnosis(es) (1) Status post closed reduction with internal fixation Current Visit: Yes Status: Acute (2) Hip fracture Current Visit: Yes Status: Acute Hospital Course: This is a 78-year-old female who is admitted to [facility] on 09/22/2018 after falling and sustaining injury to the left hip. On exam and x- ray in the emergency department he is found to have a femoral neck fracture of the left hip. He is admitted to our service for surgical intervention and care. Patient is taken to surgery for close reduction and i in situ pinning of the left hip. The procedure was performed without complication or sequelae. The patient is doing fairly well postoperatively. Vital signs and labs are stable on postoperative day #2. Patient is discharged to inpatient rehab in good condition. She will require home oxygen at this discharge. This is being arranged at this time. Please see med rec for accurate list of discharge medications. Patient Condition at Discharge: Good Plan - Discharge Summary Discharge Rx Participant: No New Discharge Prescriptions: New HYDROcodone/APAP 5-325MG [[place] 5-325] 1 - 2 each PO Q6HR PRN #40 tab PRN Reason: Pain Aspirin 325 mg PO BID #60 tab Sennosides-Docusate Sodium [Senokot-S] 1 tab PO BID #60 tablet Budesonide-Formot 160-4.5 Mcg [Symbicort 160-4.5 Mcg Inhaler] 2 puff INHALATION BID #1 inhaler Albuterol Inhaler [Ventolin Hfa Inhaler] 2 puff INHALATION RT-Q6H PRN #1 inhaler PRN Reason: Wheezing Azithromycin [Zithromax Tri-Richard] 500 mg PO DAILY 4 Days #4 tab No Action Simvastatin [Zocor] 20 mg PO HS Sertraline [Zoloft] 50 mg PO HS Triamterene-Hctz 37.5-25Mg [Dyazide] 1 cap PO DAILY Cholecalciferol [Vitamin D3] 1,000 unit PO DAILY Acetaminophen/Diphenhydramine [Tylenol PM 500-25mg] 2 tab PO HS Sertraline [Zoloft] 100 mg PO DAILY Naproxen Sodium [Aleve] 220 mg PO BID ALPRAZolam [Xanax] 1 mg PO HS ALPRAZolam [Xanax] 0.5 mg PO DAILY Discharge Medication List Sertraline [Zoloft] 50 mg PO HS 01/31/15 [History] Simvastatin [Zocor] 20 mg PO HS 01/31/15 [History] Triamterene-Hctz 37.5-25Mg [Dyazide] 1 cap PO DAILY 01/31/15 [History] ALPRAZolam [Xanax] 0.5 mg PO DAILY 09/22/18 [History] ALPRAZolam [Xanax] 1 mg PO HS 09/22/18 [History] Acetaminophen/Diphenhydramine [Tylenol PM 500-25mg] 2 tab PO HS 09/22/18 [History] Cholecalciferol [Vitamin D3] 1,000 unit PO DAILY 09/22/18 [History] Naproxen Sodium [Aleve] 220 mg PO BID 09/22/18 [History] Sertraline [Zoloft] 100 mg PO DAILY 09/22/18 [History] Albuterol Inhaler [Ventolin Hfa Inhaler] 2 puff INHALATION RT-Q6H PRN #1 inhaler 09/24/18 [Rx] Aspirin 325 mg PO BID #60 tab 09/24/18 [Rx] Azithromycin [Zithromax Tri-Richard] 500 mg PO DAILY 4 Days #4 tab 09/24/18 [Rx] Budesonide-Formot 160-4.5 Mcg [Symbicort 160-4.5 Mcg Inhaler] 2 puff INHALATION BID #1 inhaler 09/24/18 [Rx] HYDROcodone/APAP 5-325MG [[place] 5-325] 1 - 2 each PO Q6HR PRN #40 tab 09/24/18 [Rx] Sennosides-Docusate Sodium [Senokot-S] 1 tab PO BID #60 tablet 09/24/18 [Rx] Follow up Appointment(s)/Referral(s): Antoine Rojo DO [Primary Care Provider] - 1 Week Flavia Ayala DO [Doctor of Osteopathic Medicine] - 2 Weeks Activity/Diet/Wound Care/Special Instructions: May shower if no drainage from incision. Toe touch wt bearing w walker. Discharge Disposition: HOME WITH HOME HEALTH SERVICES
--- NOTE | 2018-09-24 14:04 | US ---
EXAMINATION TYPE: US venous doppler duplex LE LT DATE OF EXAM: 09/24/2018 1:25 PM COMPARISON: NONE CLINICAL HISTORY: pain, surgery. s/p hip surgery SIDE PERFORMED: Left TECHNIQUE: The lower extremity deep venous system is examined utilizing real time linear array sonog neal with graded compression, doppler sonography and color-flow sonography. VESSELS IMAGED: External Iliac Vein (EIV) Common Femoral Vein Deep Femoral Vein Greater Saphenous Vein * Femoral Vein Popliteal Vein Small Saphenous Vein * Proximal Calf Veins (* superficial vessels) There is normal flow, compressibility, vascular waveforms. Left Leg: Negative for DVT IMPRESSION: No evident deep venous thrombosis at or above the left knee
--- NOTE | 2018-09-24 15:04 | P.PN ---
Subjective Progress Note Date: 09/24/18 This is a pleasant 70 H FEMALE patient of Dr. Marshall Asencio. She has underlying history of hyperlipidemia, intermittent edema, chronic tobacco use, possible COPD osteoarthritis admitted to the emergency room secondary to left subacute subcapital femoral neck impacted fracture, requiring intramedullary nailing by Dr. Ayala later today at 6 PM, we are requested to see her for preoperative clearance and medical management, apparently patient fell approximately 12 days prior to admission, patient turn, she thought that her knee got weak, and fell down on the left hip. Patient denies any head concussion, no no syncope, no auras, patient denies any localized motor weakness in the extremities preceding this., No neuropathic pain. Patient denies any history of ischemic heart disease, or CHF no previous history of CVA, denies any valvular heart disease in the past, creatinine is normal at 0.062. No urinalysis was done, INR of 1.0 Pre-op clearance for today, EKG shows normal sinus rhythm, nonspecific ST-T wave changes or pathologic Q waves, normal QT prolongation, patient has an upper respiratory cough that started today, patient does not have any wheezing episodes, no purulence, patient denies any preanesthetic or post anesthetic problems, no history of PUD VTE the past. She would have an ASA risk score of 2, and RCRI score of 0. Surgical MACE score risk of 1-5%. She is preemptively cleared for surgery. 09/23: Patient complains of cough this morning and is more congestion. A azith romycin will be added as well as Pulmicort and 2 doses of IV Solu-Medrol. Melatonin added for sleep. She has been afebrile, heart rate in the 80s, blood pressure 124/71, pulse ox 96% on room air. White count is normal at 7.7, hemoglobin 13.1, creatinine 0.72. 09/24: Patient states that her breathing is much better today. She has been ambulated and found to have a pulse ox of 87% which qualifies her for home oxygen which will be ordered. Patient states her pain is controlled today she is having more pain in knee area. Orthopedics has evaluated the patient today and is cleared her for discharge. Medication reconciliation will be reviewed and pulmonary medications have been added as well as a prednisone taper. Patient will follow-up with Dr. Rojo in a week. Review of Systems Constitutional: Denies anorexia, Denies chills, Denies chronic headaches, Denies chronic pain, Denies daytime sleepiness, Denies fatigue, Denies fever, Denies lethargy, Denies malaise, Denies night sweats, Denies poor appetite, Denies sweats, Denies weakness, Denies weight gain, Denies weight loss Ears, nose, mouth and throat: Reports as per HPI Cardiovascular: Denies chest pain, denies palpitations, denies lightheadedness Respiratory: Reports as per HPI, Reports cough, Denies congestion, reports cough with sputum, Denies dyspnea, Denies excessive sputum, Denies hemoptysis, Denies home oxygen, Denies pain, Denies pain on inspiration, Denies pleurisy, Denies respiratory infections, Denies sleep apnea, Denies snoring, Denies wheezing Gastrointestinal: Denies nausea, denies vomiting, denies abdominal pain Genitourinary: Reports as per HPI Musculoskeletal: Reports left hip and knee discomfort. Integumentary: Reports as per HPI Neurological: Reports as per HPI, Denies aphasia, Denies ataxia, Denies balance difficulties, Denies burning pain, Denies change in mentation, Denies change in smell/taste, Denies change in speech, Denies confusion, Denies convulsions, Denies double vision, Denies gait dysfunction, Denies head injury, Denies headaches, Denies hearing difficulties, Denies lack of coordination, Denies loss of vision, Denies memory loss, Denies migraines, Denies motor disturbance, Denies numbness, Denies paralysis, Denies paresthesias, Denies seizures, Denies sensory deficit, Denies spasticity, Denies syncope, Denies tic, Denies tingling, Denies transient paralysis, Denies tremors, Denies vertigo, Denies weakness, Denies visual changes Psychiatric: Reports as per HPI, Denies anhedonia, Denies anxiety, Denies anxiety attacks, Denies change in appetite, Denies change in libido, Denies change in sleep habits, Denies confusion, Denies depression, Denies difficulty concentrating, Denies disorientation, Denies hallucinations, Denies hopelessness, Denies hypersomnia, Denies insomnia, Denies irritability, Denies memory loss, Denies mood swings, Denies paranoia, Denies sadness/tearfulness, Denies sleep disturbances, Denies suicidal ideation Objective - Vital Signs Vital signs: Vital Signs Temp 97.6 F 09/24/18 07:00 Pulse 78 09/24/18 08:54 Resp 16 09/24/18 08:54 BP 141/57 09/24/18 07:00 Pulse Ox 97 09/24/18 08:45 Intake & Output 09/23/18 09/24/18 09/24/18 18:59 06:59 18:59 Intake Total 200 450 Balance 200 450 Weight 58.967 kg Intake: Intake, IV Titration 450 Amount Sodium Chloride 0.9% 1, 450 000 ml @ 75 mls/hr IV . [id number] Rx#:[id number] Oral 200 Other: Voiding Method Toilet # Voids 1 1 - Exam General appearance: average body habitus, cooperative, no acute distress, patient resting in bed - EENT Eyes: anicteric sclerae, EOMI, PERRLA, dentition normal ENT: NA/AT, normal oropharynx - Neck Neck: normal ROM - Respiratory Respiratory: bilateral: Bilateral wheezing, negative: diminished, dullness, rales, rhonchi - Cardiovascular Rhythm: regular Heart sounds: normal: S1, S2 Abnormal Heart Sounds: no systolic murmur, no diastolic murmur, no rub, no S3 Gallop, no S4 Gallop, no click, no other - Gastrointestinal General gastrointestinal: normal bowel sounds, soft - Integumentary Integumentary: decreased turgor, normal - Neurologic Neurologic: CNII-XII intact - Musculoskeletal Musculoskeletal: gait normal, strength equal bilaterally - Psychiatric Psychiatric: A&O x's 3, appropriate affect Dorsalis pedis pulses are equal bounding, no edema, patient does not have cellulitis of broken skin no bruises noted on the left hip left shoulder and left elbows and the head - Labs CBC & Chem 7: 09/23/18 06:54 09/23/18 06:54 Assessment and Plan Plan: 1. 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 Continue incentive spirometry, opiates for pain, bowel program, GI prophylaxis, weightbearing status per orthopedic surgery. 2. Underlying COPD is suspected, continue nebulizer treatments, Pulmicort, Solu-Medrol IV 2 doses, azithromycin ordered, continue oral prednisone taper for home. 3. Acute URI, symptoms of one day, continue azithromycin, Solu-Medrol, Pulmicort, DuoNeb, incentive spirometry 4 Intermittent edema currently controlled on maintenance Dyazide, Dyazide will be held for today, and condition within the next 24-48 hours, avoid hypotension 5 Hyperlipidemia on statins can be resumed post op, monitor for rhabdo and myositis related to statin use CPK to be done, 6. 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, with possible fragility fractures, unknown last bone density, we'll going to start vitamin D, outpatient bone density is recommended for surveillance 8 Tobacco use, currently a tobacco user at one half to one pack per day, patient wants to try a nicotine patches while in the hospital, albuterol when necessary 9 NSAID use prior to admission, this will be held, and can be resumed post op, no current evidence of GI losses DVT prophylaxis patient will be on aspirin 81 mg twice a day to after 2-4 weeks depending on weightbearing status GI prophylaxis IV Protonix Chronic hypoxic respiratory failure requiring home oxygen. manager programs to make arrangements for home oxygen as her pulse ox was at 87% with ambulation. Discharge plan: home with [facility] Impression and plan of care have been directed as dictated by the signing physician. Josiane Orozco nurse practitioner acting as scribe for signing physician.
== END 2018-09-24 14:59 | disposition home health service (06) | DRG 482 ==
LOC: EC 11:06 → 4SSUR 13:05
PROVIDERS: ADMIT Orthopaedic Surgery Orthopaedic Surgery of the Spine; ATTEND Orthopaedic Surgery Orthopaedic Surgery of the Spine
PROC: 0QS736Z Reposition Left Upper Femur with Intramedullary Internal Fixation Device, Percutaneous Approach (ICD-10-PCS; principal; 2018-09-22 10:45)
DX: S72.012A Unspecified intracapsular fracture of left femur, initial encounter for closed fracture (principal); E78.5 Hyperlipidemia, unspecified; I10 Essential (primary) hypertension; F41.9 Anxiety disorder, unspecified; F32.9 Major depressive disorder, single episode, unspecified; M81.0 Age-related osteoporosis without current pathological fracture; K57.90 Diverticulosis of intestine, part unspecified, without perforation or abscess without bleeding; M85.80 Other specified disorders of bone density and structure, unspecified site; F17.200 Nicotine dependence, unspecified, uncomplicated; Z71.6 Tobacco abuse counseling; Z79.1 Long term (current) use of non-steroidal anti-inflammatories (NSAID); Z79.899 Other long term (current) drug therapy; Z90.49 Acquired absence of other specified parts of digestive tract; Z87.442 Personal history of urinary calculi; Z87.11 Personal history of peptic ulcer disease; Z87.19 Personal history of other diseases of the digestive system; Z90.710 Acquired absence of both cervix and uterus; Z88.0 Allergy status to penicillin; Z80.9 Family history of malignant neoplasm, unspecified; Z82.49 Family history of ischemic heart disease and other diseases of the circulatory system; W01.0XXA Fall on same level from slipping, tripping and stumbling without subsequent striking against object, initial encounter
CPT/HCPCS: 36415; 71046; 73501; 73502; 80048; 80053; 82550; 85025; 85610; 85730; 88305; 88311; 93005; 94640; 94760; 99284

== ENCOUNTER 2019-03-22 21:23 | Emergency (ER) | payer OTHER, MEDICARE ==
[2019-03-22 21:31] VITALS: BP 186/125; PULSE 88; RESP 18; TEMP 98.1
== END 2019-03-22 22:43 | disposition left against medical advice (07) ==
LOC: EC 21:23
DX: M54.2 Cervicalgia (principal); R51 Headache; M54.9 Dorsalgia, unspecified; V99.XXXA Unspecified transport accident, initial encounter; Y92.410 Unspecified street and highway as the place of occurrence of the external cause; Z53.21 Procedure and treatment not carried out due to patient leaving prior to being seen by health care provider
CPT/HCPCS: 99499

== ENCOUNTER → 2022-02-24 | Outpatient (CLI) | payer MEDICARE, OTHER ==
--- NOTE | 2022-02-24 15:33 | XR ---
EXAMINATION TYPE: XR chest 2V DATE OF EXAM: 02/24/2022 3:07 PM COMPARISON: Chest radiographs from 09/22/2018 TECHNIQUE: XR chest 2V Frontal and lateral views of the chest. CLINICAL INDICATION:Female, 81 years old with history of COPD J44.9; FINDINGS: Lungs/Pleura: There is flattening of the diaphragm with increased lucency of the lungs. No evidence o f pneumothorax, pleural effusion or focal consolidation. Pulmonary vascularity: Unremarkable. Heart/mediastinum: Cardiomediastinal silhouette is unremarkable. Musculoskeletal: No acute osseous pathology. Other findings: Stable calcified density within left breast. IMPRESSION: 1. No acute cardiopulmonary disease process. 2. COPD changes.
== END | disposition home or self-care (01) ==
LOC: RADXRMAIN 14:23
PROVIDERS: ATTEND Family Medicine
DX: J44.9 Chronic obstructive pulmonary disease, unspecified (principal)
CPT/HCPCS: 71046

== ENCOUNTER → 2023-05-12 | Outpatient (CLI) | payer MEDICARE ==
--- NOTE | 2023-05-12 14:10 | US ---
EXAMINATION TYPE: US abdomen complete DATE OF EXAM: 05/12/2023 COMPARISON: NONE CLINICAL INDICATION: Female, 82 years old with history of R10.11 RIGHT UPPER QUADRANT PAIN; TECHNIQUE: Multiple sonographic images of the abdomen are obtained. FINDINGS: EXAM MEASUREMENTS: Liver Length: 15.8 cm Gallbladder Wall: 0.2 cm CBD: 0.8 cm Spleen: 9.1 cm Right Kidney: 9.1 x 3.7 x 3.0 cm Left Kidney: 9.4 x 3.2 x 4.9 cm EROSION CONTROL COORDINATOR NOTES: elderly female with bowel gas Pancreas: wnl Liver: wnl Gallbladder: small stone seen Evidence for sonographic Coronel's sign: no CBD: wnl Spleen: wnl Right Kidney: wnl Left Kidney: wnl Upper IVC: wnl Abd Aorta: wnl IMPRESSION: Cholelithiasis. No suspicious change from acute cholecystitis.
== END | disposition home or self-care (01) ==
LOC: RADUSWWP 13:28
PROVIDERS: ATTEND Family Medicine
DX: K80.20 Calculus of gallbladder without cholecystitis without obstruction (principal); R10.11 Right upper quadrant pain
CPT/HCPCS: 76700

== ENCOUNTER 2023-05-19 13:13 | Observation (INO) | payer MEDICARE ==
[2023-05-19 13:48] LABS: Basophils % (A) 0 %; Eosinophils # (A) 0.1 k/uL (0-0.7); Eosinophils % (A) 1 %; HCT 43.1 % (34.0-46.0); HGB 14.2 gm/dL (11.4-16.0); Lymphocytes # (A) 2.4 k/uL (1.0-4.8); Lymphocytes % (A) 26 %; MCH 29.5 pg (25.0-35.0); MCV 89.3 fL (80.0-100.0); Mean Platelet Volume 8.8; Monocytes # (A) 1.5 k/uL (0-1.0); Monocytes % (A) 16 %; Neutrophils # (A) 5.1 k/uL (1.3-7.7); Neutrophils % (A) 55 %; Platelet Count 252 k/uL (150-450); RBC 4.82 m/uL (3.80-5.40); RDW 14.9 % (11.5-15.5); WBC 9.2 k/uL (3.8-10.6)
--- NOTE | 2023-05-19 14:13 | ED ---
Abdominal Pain HPI - General Source: patient, family, RN notes reviewed Mode of arrival: ambulatory Limitations: no limitations - History of Present Illness MD Complaint: abdominal pain <Virginia Cruz - Last Filed: 05/19/23 14:11> <Markos Portillo - Last Filed: 05/19/23 17:33> - General Chief Complaint: Abdominal Pain Stated Complaint: gall stones Time Seen by Provider: 05/19/23 14:11 - History of Present Illness Initial Comments: This is an 82-year-old female who presents to the emergency department for abdominal pain. Reports pain in the right upper quadrant with radiation into the back. Denies any pain in the shoulder. She had an ultrasound done at the end of April and states that they identified gallstones. Believes that her current symptoms are related to this. She does also notes suprapubic pain and a history of kidney stones. Denies any urinary changes. (Virginia Cruz) This is an 82-year-old female who presents emergency department stating that for 4-6 weeks she's had abdominal pain and right upper quadrant. She was told by her primary medical care doctor she has have her gallbladder removed. She went and called the surgeon and she was told that surgery is not taking any new patients until at least July and they told her if she has any issues go to the emergency department so she came in. Patient denies any pain currently. Patient denies any nausea vomiting per patient isn't diarrhea. Patient denies any chest pain difficulty breathing shortness of breath per patient states the pain is in the right upper quadrant and sometimes radiates to the back. (Markos Portillo) - Related Data Home Medications Medication Instructions Recorded Confirmed Simvastatin [Zocor] 20 mg PO HS 01/31/15 03/22/19 Triamterene-Hctz 37.5-25Mg 1 cap PO DAILY 01/31/15 03/22/19 [Dyazide] ALPRAZolam [Xanax] 1.5 mg PO DAILY 09/22/18 03/22/19 Acetaminophen/Diphenhydramine 2 tab PO HS 09/22/18 03/22/19 [Tylenol PM 500-25mg] Cholecalciferol [Vitamin D3] 1,000 unit PO DAILY 09/22/18 03/22/19 Sertraline [Zoloft] 150 mg PO DAILY 09/22/18 03/22/19 Budesonide-Formot 160-4.5 Mcg 2 puff INHALATION RT-BID 03/22/19 03/22/19 [Symbicort 160-4.5 Mcg Inhaler] Previous Rx's Medication Instructions Recorded Aspirin 325 mg PO BID #60 tab 09/24/18 Famotidine [Pepcid] 20 mg PO DAILY #30 tablet 09/24/18 Allergies Allergy/AdvReac Type Severity Reaction Status Date / Time Penicillins Allergy Unknown Verified 03/22/19 21:49 Review of Systems ROS Other: All systems not noted in ROS Statement are negative. <Virginia Cruz - Last Filed: 05/19/23 14:11> ROS Other: All systems not noted in ROS Statement are negative. <Markos Portillo - Last Filed: 05/19/23 17:33> ROS Statement: Those systems with pertinent positive or pertinent negative responses have been documented in the HPI. Past Medical History Past Medical History: Hyperlipidemia, Hypertension Additional Past Medical History / Comment(s): Past gastric ulcer, kidney stones as a teen, diverticular disease, past edema ankles, sinus problems. History of Any Multi-Drug Resistant Organisms: None Reported Past Surgical History: Appendectomy, Hysterectomy, Orthopedic Surgery Additional Past Surgical History / Comment(s): Colonoscopies/benign polypectomy, L breast core bx, L elbow surgery for tennis elbow, L wrist ganglion cyst removed and bilateral feet, L tear duct procedure to get it open, lesion removed from nose-pt states one doctor said it was cancer and another said it wasn't. Past Anesthesia/Blood Transfusion Reactions: No Reported Reaction Past Psychological History: Anxiety, Depression Past Alcohol Use History: Occasional Past Drug Use History: None Reported - Past Family History Father Family Medical History: Myocardial Infarction (ME) Additional Family Medical History / Comment(s): Father of a ME at the age of 80yrs. Mother Family Medical History: Cancer Additional Family Medical History / Comment(s): Mother survived multiple types of cancers. <Virginia Cruz - Last Filed: 05/19/23 14:11> General Exam Limitations: no limitations <Virginia Cruz - Last Filed: 05/19/23 14:11> <Markos Portillo - Last Filed: 05/19/23 17:33> - General Exam Comments Initial Comments: Visual Physical Exam Vital signs reviewed General: Well-appearing, nontoxic, no acute distress. Head: Normocephalic, atraumatic Eyes: PERRLA, EOMI ENT: Airway patent Chest: Nonlabored breathing Skin: No visual rash, normal skin tone Neuro: Alert and oriented 3 Musculoskeletal: No gross abnormalities I performed the QuickNote portion of this chart. Signed Virginia Cruz PA-C. (Virginia Cruz) GENERAL: Patient is well-developed and well-nourished. Patient is nontoxic and well- hydrated and is in no acute distress. ENT: Neck is soft and supple. No significant lymphadenopathy is noted. Oropharynx is clear. Moist mucous membranes. Neck has full range of motion without eliciting any pain. EYES: The sclera were anicteric and conjunctiva were pink and moist. Extraocular movements were intact and pupils were equal round and reactive to light. Eyeli ds were unremarkable. PULMONARY: Unlabored respirations. Good breath sounds bilaterally. No audible rales rhonchi or wheezing was noted. CARDIOVASCULAR: There is a regular rate and rhythm without any murmurs gallops or rubs. ABDOMEN: Patient is tender in the right upper quadrant SKIN: Skin is clear with no lesions or rashes and otherwise unremarkable. NEUROLOGIC: Patient is alert and oriented x3. Cranial nerves II through XII are grossly intact. Motor and sensory are also intact. Normal speech, volume and content. Symmetrical smile. MUSCULOSKELETAL: Normal extremities with adequate strength and full range of motion. No lower extremity swelling or edema. No calf tenderness. LYMPHATICS: No significant lymphadenopathy is noted PSYCHIATRIC: Normal psychiatric evaluation. (Markos Portillo) Course Vital Signs 05/19/23 05/19/23 13:26 17:14 Temperature 98.1 F Pulse Rate 73 68 Respiratory 20 Rate Blood Pressure 201/73 183/94 O2 Sat by Pulse 95 94 L Oximetry Medical Decision Making - Lab Data Result diagrams: 05/19/23 13:34 <Virginia Cruz - Last Filed: 05/19/23 14:11> - Lab Data Result diagrams: 05/19/23 15:55 05/19/23 15:55 <Markos Portillo - Last Filed: 05/19/23 17:33> - Medical Decision Making EKG is interpreted by myself. EKG shows a sinus rhythm at 65 bpm FL interval 264 QRS is 92 QT interval 434 QTC is 446. Patient's EKG shows no ST segment elevation or depression Was pt. sent in by a medical professional or institution ([facility] Escobar, [employer], urgent care, hospital, or [facility]...) When possible be specific @ -Sent in by her primary medical care doctor Did you speak to anyone other than the patient for history (EMS, parent, family, police, friend...)? What history was obtained from this source @ -No Did you review nursing and triage notes (agree or disagree)? Why? @ -I reviewed and agree with nursing and triage notes Were old charts reviewed (outside hosp., previous admission, EMS record, old EKG, old radiological studies, urgent care reports/EKG's, [facility] records)? Report findings @ -I reviewed old charts and old radiological studies as well as old lab work Differential Diagnosis (chest pain, altered mental status, abdominal pain women, abdominal pain men, vaginal bleeding, weakness, fever, dyspnea, syncope, headache, dizziness, GI bleed, back pain, seizure, CVA, palpatations, mental health, musculoskeletal)? @ -Differential Abdominal Pain Women: Appendicitis, Cholecystitis, diverticulosis, ischemic bowel, pancreatitis, hepatitis, UTI, gastroenteritis, AAA, incarcerated hernia, bowel obstruction, constipation, inflammatory bowel, hepatitis, peptic ulcer disease, splenic infarction, perforated viscus, vulvitis, ovarian torsion, PID, kidney stone, placenta abruption, this is not meant to be an all-inclusive list EKG interpreted by me (3pts min.). @ -As above X-rays interpreted by me (1pt min.). @ -None done CT interpreted by me (1pt min.). @ -None done U/S interpreted by me (1pt. min.). @ -None done What testing was considered but not performed or refused? (CT, X-rays, U/S, l abs)? Why? @ -None What meds were considered but not given or refused? Why? @ -None Did you discuss the management of the patient with other professionals (professionals i.e. ROBBY Escobar, [employer], lab, RT, psych nurse, clinical social worker, health inspector, teacher, forest fire officer, disease case manager)? Give summary @ -Poke with Dr. Zhou he agreed to admit the patient Was smoking cessation discussed for >3mins.? @ -No Was critical care preformed (if so, how long)? @ -No Were there social determinants of health that impacted care today? How? (Homelessness, low income, unemployed, alcoholism, drug addiction, transportation, low edu. Level, literacy, decrease access to med. care, retirement, rehab)? @ -No Was there de-escalation of care discussed even if they declined (Discuss DNR or withdrawal of care, Hospice)? DNR status @ -No What co-morbidities impacted this encounter? (DM, HTN, Smoking, COPD, CAD, Cancer, CVA, ARF, Chemo, Hep., AIDS, mental health diagnosis, sleep apnea, morbid obesity)? @ -None Was patient admitted / discharged? Hospital course, mention meds given and route, prescriptions, significant lab abnormalities, going to OR and other pertinent info. @ -Patient's lab work came back within normal range however the patient does have stones on the ultrasound that she had a few days ago. I spoke with Dr. Zhou he agreed to admit the patient I admitted the patient wrote admitting orders. Undiagnosed new problem with uncertain prognosis? @ -No Drug Therapy requiring intensive monitoring for toxicity (Heparin, Nitro, In sulin, Cardizem)? @ -No Were any procedures done? @ -No Diagnosis/symptom? @ -Biliary colic, cholelithiasis Acute, or Chronic, or Acute on Chronic? @ -Acute Uncomplicated (without systemic symptoms) or Complicated (systemic symptoms)? @ -Complicated Side effects of treatment? @ -No Exacerbation, Progression, or Severe Exacerbation? @ -No Poses a threat to life or bodily function? How? (Chest pain, USA, ME, pneumonia, PE, COPD, DKA, ARF, appy, cholecystitis, CVA, Diverticulitis, Homicidal, Suicidal, threat to staff... and all critical care pts) @ -No (Markos Portillo) - Lab Data Lab Results 05/19/23 05/19/23 05/19/23 Range/Units 13:34 13:34 13:34 WBC 9.2 (3.8-10.6) k/uL RBC 4.82 (3.80-5.40) m/uL Hgb 14.2 (11.4-16.0) gm/dL Hct 43.1 (34.0-46.0) % MCV 89.3 (80.0-100.0) fL MCH 29.5 (25.0-35.0) pg MCHC 33.0 (31.0-37.0) g/dL RDW 14.9 (11.5-15.5) % Plt Count 252 (150-450) k/uL MPV 8.8 Neutrophils % 55 % Lymphocytes % 26 % Monocytes % 16 % Eosinophils % 1 % Basophils % 0 % Neutrophils # 5.1 (1.3-7.7) k/uL Lymphocytes # 2.4 (1.0-4.8) k/uL Monocytes # 1.5 H (0-1.0) k/uL Eosinophils # 0.1 (0-0.7) k/uL Basophils # 0.0 (0-0.2) k/uL Sodium 141 (137-145) mmol/L Potassium 4.1 (3.5-5.1) mmol/L Chloride 105 (98-107) mmol/L Carbon Dioxide 27 (22-30) mmol/L Anion Gap 9 mmol/L BUN 14 (7-17) mg/dL Creatinine 0.66 (0.52-1.04) mg/dL Est GFR (CKD-EPI)AfAm >90 (>60 ml/min/1.73 sqM) Est GFR (CKD-EPI)NonAf 83 (>60 ml/min/1.73 sqM) Glucose 88 (74-99) mg/dL Plasma Lactic Acid Martin 1.1 (0.7-2.0) mmol/L Calcium 9.8 (8.4-10.2) mg/dL Total Bilirubin 0.5 (0.2-1.3) mg/dL AST 22 (14-36) U/L ALT 11 (4-34) U/L Alkaline Phosphatase 88 (38-126) U/L Total Protein 7.7 (6.3-8.2) g/dL Albumin 4.5 (3.5-5.0) g/dL Amylase 49 (30-110) U/L Lipase 100 (23-300) U/L Urine Color Urine Appearance (Clear) Urine pH (5.0-8.0) Ur Specific [place] (1.001-1.035) Urine Protein (Negative) Urine Glucose (UA) (Negative) Urine Ketones (Negative) Urine Blood (Negative) Urine Nitrite (Negative) Urine Bilirubin (Negative) Urine Urobilinogen (<2.0) mg/dL Ur Leukocyte Esterase (Negative) Urine RBC (0-5) /hpf Urine WBC (0-5) /hpf Ur Squamous Epith Cells (0-4) /hpf Urine Bacteria (None) /hpf 05/19/23 05/19/23 05/19/23 Range/Units 15:55 15:55 15:55 WBC 8.4 (3.8-10.6) k/uL RBC 4.74 (3.80-5.40) m/uL Hgb 14.0 (11.4-16.0) gm/dL Hct 42.0 (34.0-46.0) % MCV 88.5 (80.0-100.0) fL MCH 29.5 (25.0-35.0) pg MCHC 33.3 (31.0-37.0) g/dL RDW 15.1 (11.5-15.5) % Plt Count 209 (150-450) k/uL MPV 9.4 Neutrophils % 53 % Lymphocytes % 26 % Monocytes % 17 % Eosinophils % 1 % Basophils % 1 % Neutrophils # 4.4 (1.3-7.7) k/uL Lymphocytes # 2.2 (1.0-4.8) k/uL Monocytes # 1.4 H (0-1.0) k/uL Eosinophils # 0.1 (0-0.7) k/uL Basophils # 0.0 (0-0.2) k/uL Sodium 140 (137-145) mmol/L Potassium 3.9 (3.5-5.1) mmol/L Chloride 105 (98-107) mmol/L Carbon Dioxide 23 (22-30) mmol/L Anion Gap 12 mmol/L BUN 13 (7-17) mg/dL Creatinine 0.58 (0.52-1.04) mg/dL Est GFR (CKD-EPI)AfAm >90 (>60 ml/min/1.73 sqM) Est GFR (CKD-EPI)NonAf 86 (>60 ml/min/1.73 sqM) Glucose 84 (74-99) mg/dL Plasma Lactic Acid Martin (0.7-2.0) mmol/L Calcium 9.6 (8.4-10.2) mg/dL Total Bilirubin 0.5 (0.2-1.3) mg/dL AST 24 (14-36) U/L ALT 11 (4-34) U/L Alkaline Phosphatase 85 (38-126) U/L Total Protein 7.6 (6.3-8.2) g/dL Albumin 4.6 (3.5-5.0) g/dL Amylase 46 (30-110) U/L Lipase 255 (23-300) U/L Urine Color Colorless Urine Appearance Clear (Clear) Urine pH 7.0 (5.0-8.0) Ur Specific [place] 1.015 (1.001-1.035) Urine Protein Negative (Negative) Urine Glucose (UA) Negative (Negative) Urine Ketones Trace H (Negative) Urine Blood Negative (Negative) Urine Nitrite Negative (Negative) Urine Bilirubin Negative (Negative) Urine Urobilinogen <2.0 (<2.0) mg/dL Ur Leukocyte Esterase Small H (Negative) Urine RBC 1 (0-5) /hpf Urine WBC 5 (0-5) /hpf Ur Squamous Epith Cells 7 H (0-4) /hpf Urine Bacteria Rare H (None) /hpf 05/19/23 Range/Units 15:55 WBC (3.8-10.6) k/uL RBC (3.80-5.40) m/uL Hgb (11.4-16.0) gm/dL Hct (34.0-46.0) % MCV (80.0-100.0) fL MCH (25.0-35.0) pg MCHC (31.0-37.0) g/dL RDW (11.5-15.5) % Plt Count (150-450) k/uL MPV Neutrophils % % Lymphocytes % % Monocytes % % Eosinophils % % Basophils % % Neutrophils # (1.3-7.7) k/uL Lymphocytes # (1.0-4.8) k/uL Monocytes # (0-1.0) k/uL Eosinophils # (0-0.7) k/uL Basophils # (0-0.2) k/uL Sodium (137-145) mmol/L Potassium (3.5-5.1) mmol/L Chloride (98-107) mmol/L Carbon Dioxide (22-30) mmol/L Anion Gap mmol/L BUN (7-17) mg/dL Creatinine (0.52-1.04) mg/dL Est GFR (CKD-EPI)AfAm (>60 ml/min/1.73 sqM) Est GFR (CKD-EPI)NonAf (>60 ml/min/1.73 sqM) Glucose (74-99) mg/dL Plasma Lactic Acid Martin 1.2 (0.7-2.0) mmol/L Calcium (8.4-10.2) mg/dL Total Bilirubin (0.2-1.3) mg/dL AST (14-36) U/L ALT (4-34) U/L Alkaline Phosphatase (38-126) U/L Total Protein (6.3-8.2) g/dL Albumin (3.5-5.0) g/dL Amylase (30-110) U/L Lipase (23-300) U/L Urine Color Urine Appearance (Clear) Urine pH (5.0-8.0) Ur Specific [place] (1.001-1.035) Urine Protein (Negative) Urine Glucose (UA) (Negative) Urine Ketones (Negative) Urine Blood (Negative) Urine Nitrite (Negative) Urine Bilirubin (Negative) Urine Urobilinogen (<2.0) mg/dL Ur Leukocyte Esterase (Negative) Urine RBC (0-5) /hpf Urine WBC (0-5) /hpf Ur Squamous Epith Cells (0-4) /hpf Urine Bacteria (None) /hpf Disposition <Virginia Cruz - Last Filed: 05/19/23 14:11> Time of Disposition: 16:53 <Markos Portillo - Last Filed: 05/19/23 17:33> Clinical Impression: Biliary colic, Cholelithiasis Disposition: ADMITTED IP TO THIS HOSP
[2023-05-19 14:25] LABS: ALT 11 U/L (4-34); AST 22 U/L (14-36); African American GFR (CKD) >90 (>60 ml/min/1.73 sqM); Albumin 4.5 g/dL (3.5-5.0); Alkaline Phosphatase 88 U/L (38-126); Amylase 49 U/L (30-110); Anion Gap 9 mmol/L; Blood Urea Nitrogen 14 mg/dL (7-17); Calcium 9.8 mg/dL (8.4-10.2); Carbon Dioxide 27 mmol/L (22-30); Chloride 105 mmol/L (98-107); Glucose 88 mg/dL (74-99); Lipase 100 U/L (23-300); Non-African American GFR(CKD) 83 (>60 ml/min/1.73 sqM); Potassium 4.1 mmol/L (3.5-5.1); Sodium 141 mmol/L (137-145); Total Bilirubin 0.5 mg/dL (0.2-1.3); Total Protein 7.7 g/dL (6.3-8.2)
[2023-05-19 16:23] LABS: Basophils % (A) 1 %; Eosinophils # (A) 0.1 k/uL (0-0.7); Eosinophils % (A) 1 %; Lymphocytes # (A) 2.2 k/uL (1.0-4.8); Lymphocytes % (A) 26 %; MCH 29.5 pg (25.0-35.0); MCHC 33.3 g/dL (31.0-37.0); MCV 88.5 fL (80.0-100.0); Mean Platelet Volume 9.4; Monocytes # (A) 1.4 k/uL (0-1.0); Monocytes % (A) 17 %; Neutrophils # (A) 4.4 k/uL (1.3-7.7); Neutrophils % (A) 53 %; Platelet Count 209 k/uL (150-450); RBC 4.74 m/uL (3.80-5.40); RDW 15.1 % (11.5-15.5); WBC 8.4 k/uL (3.8-10.6)
[2023-05-19 16:26] LABS: ALT 11 U/L (4-34); AST 24 U/L (14-36); African American GFR (CKD) >90 (>60 ml/min/1.73 sqM); Albumin 4.6 g/dL (3.5-5.0); Alkaline Phosphatase 85 U/L (38-126); Amylase 46 U/L (30-110); Anion Gap 12 mmol/L; Blood Urea Nitrogen 13 mg/dL (7-17); Calcium 9.6 mg/dL (8.4-10.2); Carbon Dioxide 23 mmol/L (22-30); Chloride 105 mmol/L (98-107); Glucose 84 mg/dL (74-99); Lipase 255 U/L (23-300); Non-African American GFR(CKD) 86 (>60 ml/min/1.73 sqM); Potassium 3.9 mmol/L (3.5-5.1); Sodium 140 mmol/L (137-145); Total Bilirubin 0.5 mg/dL (0.2-1.3); Total Protein 7.6 g/dL (6.3-8.2)
[2023-05-19] MEDS ORDERED: SODIUM CHLORIDE 0.9% 1,000 ML IV ONE (16:58)
[2023-05-19 17:03] LABS: Appearance,Urine Clear (Clear); Bacteria,Urine Rare /hpf; Bilirubin,Urine Negative (Negative); Blood,Urine Negative (Negative); Color,Urine Colorless; Glucose,Urine (UA) Negative (Negative); Ketones,Urine Trace (Negative); Leukocyte Esterase,Urine Small (Negative); Nitrite,Urine Negative (Negative); Protein,Urine Negative (Negative); RBC,Urine 1 /hpf (0-5); Specific Gravity,Urine 1.015 (1.001-1.035); Squamous Epithelial Cell,Urine 7 /hpf (0-4); Urobilinogen,Urine <2.0 mg/dL (<2.0); WBC,Urine 5 /hpf (0-5)
[2023-05-19 18:28] LABS: Partial Thromboplastin Time 23.6 sec (22.0-30.0); Prothrombin Time 10.9 sec (10.0-12.5)
[2023-05-19] MEDS ORDERED: ALPRAZolam 0.25 MG TAB PO PRN (20:28)
[2023-05-19] MEDS ORDERED: TRIAMTERENE-HCTZ 37.5-25MG 1 EACH CAP PO PRN (20:28)
[2023-05-19] MEDS ORDERED: HYDROmorphone 1 MG/ML 1 ML SYRINGE IVP PRN (20:29)
[2023-05-19] MEDS: QUEtiapine 50 MG TAB PO SCH (20:45)
[2023-05-19] MEDS: ATORVASTATIN 10 MG TAB PO SCH (20:45)
[2023-05-19] MEDS: ASPIRIN 81 MG PO SCH (20:46)
[2023-05-19] MEDS: CHOLECALCIFEROL 125 MCG (5000 IU) TABLET PO SCH (20:46)
--- NOTE | 2023-05-20 07:44 | P.PN ---
Progress Note - Text Progress Note Date: 05/20/23 Is a 8-year-old female who's had chronic complaints of right quadrant pain for several months. Patient states the pain has been progressive. He states she has pain whenever she is. Patient is known to have gallstones. Patient states she had an exacerbation of right quadrant pain after going out to dinner on Thursday night. On exam vital signs appear stable. Abdomen soft There is significant right quadrant tenderness Symptomatic choledocholithiasis. Patient will be scheduled for laparoscopically cholecystectomy later today.
[2023-05-20] MEDS: ESCITALOPRAM 20 MG TAB PO SCH (08:24)
[2023-05-20] MEDS: VIT A,C & E-LUTEIN-MINERALS 1 EACH TAB PO SCH (08:24)
--- NOTE | 2023-05-20 10:13 | P.GSHP ---
History of Present Illness H&P Date: 05/20/23 CHIEF COMPLAINT: Abdominal pain HISTORY OF PRESENT ILLNESS: This is a 82-year-old female who presented to the hospital with complaint of right upper quadrant abdominal pain for the last 3 months. Patient reports that the pain is worse after eating. Patient has a known history of gallstones and was supposed to follow-up outpatient with surgeon in July. Patient was informed to come to the ER if symptoms worsened. Patient denies any nausea or vomiting. Denies any fevers chills or sweats. She had an abdominal ultrasound on 05/12/2023 that reported cholelithiasis. No suspicious change for acute cholecystitis. Patient's past surgical history includes hysterectomy and appendectomy. She denies any cardiac history. She has been admitted to the hospital for symptom medical ophiasis. PAST MEDICAL HISTORY: Hyperlipidemia, Hypertension, kidney stones, diverticular disease, PAST SURGICAL HISTORY: Appendectomy, hysterectomy, orthopedic surgery MEDICATIONS: See below ALLERGIES: See below SOCIAL HISTORY: No illicit drug use. Nicotine dependence REVIEW OF SYSTEMS: CONSTITUTIONAL: Denies fever or chills. HEENT: Denies blurred vision, vision changes, or eye pain. Denies hemoptysis CARDIOVASCULAR: Denies chest pain or pressure. RESPIRATORY: No shortness of breath. GASTROINTESTINAL: See HPI for pertinent findings HEMATOLOGIC: Denies bleeding disorders. GENITOURINARY: Denies any blood in urine or increased urinary frequency. SKIN: Denies pruitis. Denies rash. PHYSICAL EXAM: VITAL SIGNS: Reviewed GENERAL: Well-developed in no acute distress. HEENT: No sclera icterus. ABDOMEN: Soft. Nondistended. Tenderness to palpation right upper quadrant NEUROLOGIC: Alert and oriented. Cranial nerves II through XII grossly intact. LABORATORY DATA: WBC is 8.4 Hgb 14.0 platelets 209 Sodium 140 potassium 3.9 creatinine 0.58 LFTs normal INR 1.0 IMAGING: ASSESSMENT: 1. Symptomatic cholelithiasis 2. Right upper quadrant abdominal pain PLAN: -Patient scheduled for laparoscopic cholecystectomy today with Dr. Zhou -Keep patient nothing by mouth -Continue IV fluids -Continue pain medication as needed -Medicine service consulted for medical management Physician [employer] Program Director note has been reviewed by physician. Signing provider agrees with the documented findings, assessment, and plan of care. Past Medical History Past Medical History: Hyperlipidemia, Hypertension Additional Past Medical History / Comment(s): Past gastric ulcer, kidney stones as a teen, diverticular disease, past edema ankles, sinus problems. History of Any Multi-Drug Resistant Organisms: None Reported Past Surgical History: Appendectomy, Hysterectomy, Orthopedic Surgery Additional Past Surgical History / Comment(s): Colonoscopies/benign polypectomy, L breast core bx, L elbow surgery for tennis elbow, L wrist ganglion cyst removed and bilateral feet, L tear duct procedure to get it open, lesion removed from nose-pt states one doctor said it was cancer and another said it wasn't. Past Anesthesia/Blood Transfusion Reactions: No Reported Reaction Past Psychological History: Anxiety, Depression Additional Psychological History / Comment(s): Pt resides with her significant other. She has been using his cane lately d/t fall and L hip/knee pain. Pt is otherwise independent. Smoking Status: Current every day smoker Past Alcohol Use History: Occasional Additional Past Alcohol Use History / Comment(s): Ptstarted smoking in 1963 and the amount she smokes varies depending on what she is doing. Past Drug Use History: None Reported - Past Family History Father Family Medical History: Myocardial Infarction (DE) Additional Family Medical History / Comment(s): Father of a DE at the age of 80yrs. Mother Family Medical History: Cancer Additional Family Medical History / Comment(s): Mother survived multiple types of cancers. Medications and Allergies Home Medications Medication Instructions Recorded Confirmed Type Simvastatin [Zocor] 20 mg PO HS 01/31/15 05/19/23 History Triamterene-Hctz 37.5-25Mg 1 cap PO DAILY PRN 01/31/15 05/19/23 History [Dyazide] ALPRAZolam [Xanax] 0.25 mg PO BID PRN 09/22/18 05/19/23 History Aspirin 81 mg PO HS 05/19/23 05/19/23 History Cholecalciferol [Vitamin D3 (125 125 mcg PO HS 05/19/23 05/19/23 History Mcg = 5000 Iu)] Escitalopram [Lexapro] 20 mg PO DAILY 05/19/23 05/19/23 History QUEtiapine [SEROquel] 50 mg PO HS 05/19/23 05/19/23 History Vit C/E/Zn/Coppr/Lutein/Zeaxan 1 cap PO DAILY 05/19/23 05/19/23 History [Preservision Areds 2 Softgel] Allergies Allergy/AdvReac Type Severity Reaction Status Date / Time Penicillins Allergy Unknown Verified 05/19/23 18:05 Childhood Surgical - Exam Vital Signs Temp Pulse Resp BP Pulse Ox 98.1 F 73 20 201/73 95 05/19/23 13:26 05/19/23 13:26 05/19/23 13:26 05/19/23 13:26 05/19/23 13:26 Results - Labs 05/19/23 15:55 05/19/23 15:55 Abnormal Lab Results - Last 24 Hours (Table) 05/19/23 05/19/23 05/19/23 Range/Units 13:34 15:55 15:55 Monocytes # 1.5 H 1.4 H (0-1.0) k/uL Urine Ketones Trace H (Negative) Ur Leukocyte Esterase Small H (Negative) Ur Squamous Epith Cells 7 H (0-4) /hpf Urine Bacteria Rare H (None) /hpf Diabetes panel 05/19/23 05/19/23 Range/Units 13:34 15:55 Sodium 141 140 (137-145) mmol/L Potassium 4.1 3.9 (3.5-5.1) mmol/L Chloride 105 105 (98-107) mmol/L Carbon Dioxide 27 23 (22-30) mmol/L BUN 14 13 (7-17) mg/dL Creatinine 0.66 0.58 (0.52-1.04) mg/dL Glucose 88 84 (74-99) mg/dL Calcium 9.8 9.6 (8.4-10.2) mg/dL AST 22 24 (14-36) U/L ALT 11 11 (4-34) U/L Alkaline Phosphatase 88 85 (38-126) U/L Total Protein 7.7 7.6 (6.3-8.2) g/dL Albumin 4.5 4.6 (3.5-5.0) g/dL Calcium panel 05/19/23 05/19/23 Range/Units 13:34 15:55 Calcium 9.8 9.6 (8.4-10.2) mg/dL Albumin 4.5 4.6 (3.5-5.0) g/dL Pituitary panel 05/19/23 05/19/23 Range/Units 13:34 15:55 Sodium 141 140 (137-145) mmol/L Potassium 4.1 3.9 (3.5-5.1) mmol/L Chloride 105 105 (98-107) mmol/L Carbon Dioxide 27 23 (22-30) mmol/L BUN 14 13 (7-17) mg/dL Creatinine 0.66 0.58 (0.52-1.04) mg/dL Glucose 88 84 (74-99) mg/dL Calcium 9.8 9.6 (8.4-10.2) mg/dL Adrenal panel 05/19/23 05/19/23 Range/Units 13:34 15:55 Sodium 141 140 (137-145) mmol/L Potassium 4.1 3.9 (3.5-5.1) mmol/L Chloride 105 105 (98-107) mmol/L Carbon Dioxide 27 23 (22-30) mmol/L BUN 14 13 (7-17) mg/dL Creatinine 0.66 0.58 (0.52-1.04) mg/dL Glucose 88 84 (74-99) mg/dL Calcium 9.8 9.6 (8.4-10.2) mg/dL Total Bilirubin 0.5 0.5 (0.2-1.3) mg/dL AST 22 24 (14-36) U/L ALT 11 11 (4-34) U/L Alkaline Phosphatase 88 85 (38-126) U/L Total Protein 7.7 7.6 (6.3-8.2) g/dL Albumin 4.5 4.6 (3.5-5.0) g/dL
[2023-05-20] MEDS ORDERED: IV FLUID CONTINUATION 1,000 ML IV ONE (14:03)
[2023-05-20] MEDS ORDERED: ONDANSETRON 4 MG/2 ML VIAL ONE (14:26)
[2023-05-20] MEDS ORDERED: HEPARIN SODIUM,PORCINE/PF 5,000 UNIT/0.5 ML SYRINGE SQ ONE (14:26)
[2023-05-20] MEDS ORDERED: IPRATROPIUM-ALBUTEROL 3 ML NEB ONE (14:27)
[2023-05-20] MEDS ORDERED: DEXAMETHASONE SOD PHOSPHATE 4 MG/ML 1 ML VIAL IVP ONE (14:31)
[2023-05-20] MEDS ORDERED: FAMOTIDINE 20 MG/2 ML VIAL IVP ONE (14:32)
[2023-05-20] MEDS ORDERED: ALBUTEROL NEBULIZED 2.5 MG/3 ML INHALATION ONE (14:39)
[2023-05-20] MEDS ORDERED: IPRATROPIUM-ALBUTEROL 3 ML NEB INHALATION STA (14:45)
[2023-05-20] MEDS ORDERED: HEPARIN SODIUM,PORCINE 5,000 UNIT/ML 1 ML VIAL SQ ONE (14:59)
[2023-05-20] MEDS ORDERED: PROPOFOL 10 MG/ML 20 ML VIAL IV ONE (15:00)
[2023-05-20] MEDS ORDERED: ROCURONIUM 10 MG/ML (5 ML VIAL) IV ONE (15:00)
[2023-05-20] MEDS ORDERED: GLYCOPYRROLATE 0.2 MG/ML 2 ML VIAL ONE (15:00)
[2023-05-20] MEDS ORDERED: fentaNYL (PF) 50 MCG/ML 2 ML AMP ONE (15:00)
[2023-05-20] MEDS ORDERED: KETOROLAC 15 MG/ML 1 ML VIAL ONE (15:00)
[2023-05-20] MEDS ORDERED: LIDOCAINE 1% INJ 10MG/ML (20 ML MDV) ONE (15:00)
[2023-05-20] MEDS ORDERED: SUCCINYLCHOLINE CHLORIDE 200 MG/10 ML VIAL IV ONE (15:00)
[2023-05-20] MEDS ORDERED: NEOSTIGMINE 1 MG/ML 10 ML VIAL ONE (15:00)
[2023-05-20] MEDS ORDERED: BUPIVACAINE (PF) 0.5% 30 ML VIAL SQ ONE (15:08)
[2023-05-20] MEDS ORDERED: HYDROcodone/APAP 5-325MG 1 EACH TAB PO PRN ×2 (15:41)
[2023-05-20] MEDS ORDERED: LACTATED RINGERS 1,000 ML IV ONE (15:41)
[2023-05-20] MEDS ORDERED: ACETAMINOPHEN TAB 325 MG TAB PO PRN (15:41)
[2023-05-20] MEDS ORDERED: NALOXONE 0.4 MG/ML 1 ML VIAL IV PRN (15:41)
[2023-05-20] MEDS ORDERED: ONDANSETRON 4 MG/2 ML VIAL IVP PRN (15:41)
[2023-05-20] MEDS ORDERED: HYDROmorphone 0.5 MG/0.5 ML SYRINGE IVP PRN (15:41)
[2023-05-20] MEDS ORDERED: traMADol 50 MG TAB PO PRN (15:41)
--- NOTE | 2023-05-20 15:41 | P.OP ---
Date of Procedure: 05/20/23 Preoperative Diagnosis: Cholelithiasis Postoperative Diagnosis: Cholelithiasis Procedure(s) Performed: Laparoscopic cholecystectomy Anesthesia: NELSON Surgeon: Dwayne Zhou Pathology: other (Gallbladder) Condition: stable Disposition: PACU Description of Procedure: The patient was placed on the operating table. The patient received a general endotracheal tube anesthesia. The patients abdomen was prepped and draped in the usual sterile fashion. Through an infraumbilical stab incision, the fascia of the anterior abdominal wall was grasped with a pair of Kochers and then the Veress needle was placed in the peritoneal cavity. Position of the Veress needle was confirmed with positive drop test. The abdomen was then insufflated. After adequate insufflation, the 10 mm trocar was placed in the peritoneal cavity. Following this the laparoscope was placed in the peritoneal cavity. The patient was placed in the head-up, right side up position and then a 5 mm trocar was placed in the right lateral and right subcostal position under direct visualization. A 8 mm trocar was placed in the epigastric position. The gallbladder was grasped in the fundus and infundibulum. Traction on the gallbladder was placed in the lateral and the cephalad positions. The triangle of Calot was visualized.. The cystic duct was bluntly dissected until the union of the cystic duct and common bile duct was seen. A critical view of safety was achieved. The cystic duct was then divided and sealed with the Harmonic scissors. A PDS Endoloop was then placed throughout the cystic duct stump. The cystic artery divided and sealed with the Harmonic scissors. The gallbladder was then removed from the liver bed using Harmonic scissors. The gallbladder was then extracted through the epigastric port site. Operative field was checked for any bleeding spots and Harmonic scissors was used to coagulate the liver bed. The abdomen was irrigated. The trocars were removed. The skin was closed using interrupted 3-0 Vicryl suture. Dermabond dressing were applied. The patient tolerated the procedure well.
--- NOTE | 2023-05-20 16:08 | P.CONS ---
History of Present Illness - Reason for Consult Consult date: 05/20/23 Medical management, cholelithiasis - History of Present Illness - Reason for Consult Consult date: 05/19/23 Medical management, cholelithiasis - History of Present Illness This is a very pleasant 82-year-old female who was admitted under Gen. surgery services having right upper quadrant abdominal pain that had been ongoing and patient was having increased pain after eating and has been having difficulties. Patient with a known history of gallstones and continued to have worsening pain with no relief. Patient scheduled to undergo laparoscopic cholecystectomy sometime today and currently pending at this time. Patient is nothing by mouth. Patient reports she follows with Dr. Johnson in the outpatient setting with a past medical history of hyperlipidemia, hypertension, previous kidney stones, diverticular disease, admits to smoking and denies any other illicit drug use or alcohol use. Review Of Systems: Constitutional: No fever, no chills, no night sweats. No weight change. No weakness, fatigue or lethargy. No daytime sleepiness. EENT: No headache. No blurred vision or double vision, no loss of vision. No loss of Hearing, no ringing in the ears, no dizziness. No nasal drainage or congestion. No epistaxis. No sore throat. Lungs: No shortness of breath, cough, no sputum production. No wheezing. Cardiovascular: No chest pain, no lower extremity edema. No palpitations. No paroxysmal nocturnal dyspnea. No orthopnea. No lightheadedness or dizziness. No syncopal episodes. Abdominal: Reports right upper quadrant abdominal pain. No nausea, vomiting. No diarrhea. No constipation. No bloody or tarry stools.. No loss of appetite. Genitourinary: No dysuria, increased frequency, urgency. No urinary retention. Musculoskeletal: No myalgias. No muscle weakness, no gait dysfunction, no frequent falls. No back pain. No neck pain. Reports left hip pain Integumentary: No wounds, no lesions. No rash or pruritus. No unusual bruising. No change in hair or nails. Neurologic: No aphasia. No facial droop. No change in mentation. No head injury. No headache. No paralysis. No paresthesia. Psychiatric: No depression. No anxiety. No mood swings. Endocrine: No abnormal blood sugars. No weight change. No excessive sweating or thirst. No cold intolerance. PHYSICAL EXAMINATION: GENERAL: The patient is awake, alert and oriented x3, Well developed, well nourished. Elderly-appearing HEENT: Pupils are round and equally reacting to light. EOMI. no scleral icterus. No conjunctival pallor. Normocephalic, atraumatic. No pharyngeal erythema. No thyromegaly. CARDIOVASCULAR: S1 and S2 muffled PULMONARY: diminished breath sounds bilaterally otherwise clear to auscultation with no wheezing or rhonchi noted. ABDOMEN: soft. Right upper quadrant tenderness on exam. obese. non-distended, normoactive bowel sounds. No palpable organomegaly. MUSCULOSKELETAL: No joint swelling or deformity. EXTREMITIES: No cyanosis, clubbing, or pedal edema. NEUROLOGICAL: Gross neurological examination did not reveal any focal deficits. SKIN: No rashes. Assessment: Cholelithiasis, symptomatic with pain after eating, known history of gallstones Right upper quadrant abdominal pain scheduled to undergo laparoscopic cholecystectomy History of hyperlipidemia Hypertension history Continued ongoing nicotine abuse History of anxiety/depression GI prophylaxis DVT prophylaxis Full code Plan: Recommend to continue with current medications and management per general surgery services. Patient is currently nothing by mouth and scheduled to undergo laparoscopic cholecystectomy today Will follow-up on patient post surgery Recommend incentive spirometer and encourage the patient use at least 10 times every hour while awake Encouraged increased activity as tolerated Follow-up labs in the a.m. ordered Diet to be resumed per surgery Home medications reviewed and resumed as appropriate We will continue to follow with orthopedics during hospitalization. Thank you kindly for this consultation. The impression and plan of care has been dictated by Adriana Eugene, nurse practitioner as directed. Dr. Joaquín MD I have performed a history and examination and MDM of this patient, discussed the same with the dictator, and agree with the dictator's assessment and plan as written ,documented as a scribe. Based on total visit time, I have performed more than 50% of the visit. Any additional findings or plans will be noted. Past Medical History Past Medical History: Hyperlipidemia, Hypertension Additional Past Medical History / Comment(s): Past gastric ulcer, kidney stones as a teen, diverticular disease, past edema ankles, sinus problems. History of Any Multi-Drug Resistant Organisms: None Reported Past Surgical History: Appendectomy, Hysterectomy, Orthopedic Surgery Additional Past Surgical History / Comment(s): Colonoscopies/benign polypectomy, L breast core bx, L elbow surgery for tennis elbow, L wrist ganglion cyst removed and bilateral feet, L tear duct procedure to get it open, lesion removed from nose-pt states one doctor said it was cancer and another said it wasn't. Past Anesthesia/Blood Transfusion Reactions: No Reported Reaction Past Psychological History: Anxiety, Depression Additional Psychological History / Comment(s): Pt resides with her significant other. She has been using his cane lately d/t fall and L hip/knee pain. Pt is otherwise independent. Smoking Status: Current every day smoker Past Alcohol Use History: Occasional Additional Past Alcohol Use History / Comment(s): Ptstarted smoking in 1963 and the amount she smokes varies depending on what she is doing. Past Drug Use History: None Reported - Past Family History Father Family Medical History: Myocardial Infarction (OR) Additional Family Medical History / Comment(s): Father of a OR at the age of 80yrs. Mother Family Medical History: Cancer Additional Family Medical History / Comment(s): Mother survived multiple types of cancers. Medications and Allergies Home Medications Medication Instructions Recorded Confirmed Type Simvastatin [Zocor] 20 mg PO HS 01/31/15 05/19/23 History Triamterene-Hctz 37.5-25Mg 1 cap PO DAILY PRN 01/31/15 05/19/23 History [Dyazide] ALPRAZolam [Xanax] 0.25 mg PO BID PRN 09/22/18 05/19/23 History Aspirin 81 mg PO HS 05/19/23 05/19/23 History Cholecalciferol [Vitamin D3 (125 125 mcg PO HS 05/19/23 05/19/23 History Mcg = 5000 Iu)] Escitalopram [Lexapro] 20 mg PO DAILY 05/19/23 05/19/23 History QUEtiapine [SEROquel] 50 mg PO HS 05/19/23 05/19/23 History Vit C/E/Zn/Coppr/Lutein/Zeaxan 1 cap PO DAILY 05/19/23 05/19/23 History [Preservision Areds 2 Softgel] Allergies Allergy/AdvReac Type Severity Reaction Status Date / Time Penicillins Allergy Unknown Verified 05/19/23 18:05 Childhood Physical Exam Vitals: Vital Signs Temp Pulse Pulse Resp BP BP Pulse Ox 05/20/23 07:00 99.6 F 79 14 152/51 90 L 05/20/23 01:36 98.3 F 69 15 146/76 93 L 05/19/23 19:36 97.6 F 72 16 186/90 93 L 05/19/23 18:33 98.1 F 68 16 180/71 96 05/19/23 17:14 68 183/94 94 L 05/19/23 13:26 98.1 F 73 20 201/73 95 Intake and Output 05/19/23 05/20/23 05/20/23 22:59 06:59 14:59 Other: # Voids 1 1 Weight 56.699 kg Results CBC & Chem 7: 05/19/23 15:55 05/19/23 15:55 Labs: Abnormal Lab Results - Last 24 Hours (Table) 05/19/23 05/19/23 05/19/23 Range/Units 13:34 15:55 15:55 Monocytes # 1.5 H 1.4 H (0-1.0) k/uL Urine Ketones Trace H (Negative) Ur Leukocyte Esterase Small H (Negative) Ur Squamous Epith Cells 7 H (0-4) /hpf Urine Bacteria Rare H (None) /hpf
[2023-05-20] MEDS: KETOROLAC 15 MG/ML 1 ML VIAL IVP SCH (18:32)
[2023-05-20] MEDS: ATORVASTATIN 10 MG TAB PO SCH (20:02)
[2023-05-20] MEDS: QUEtiapine 50 MG TAB PO SCH (20:02)
[2023-05-20] MEDS: CHOLECALCIFEROL 125 MCG (5000 IU) TABLET PO SCH (20:04)
[2023-05-20] MEDS: ASPIRIN 81 MG PO SCH (20:04)
[2023-05-21] MEDS: KETOROLAC 15 MG/ML 1 ML VIAL IVP SCH ×3 (00:37→08:56)
[2023-05-21 08:25] VITALS: BP 158/67; PULSE 76; RESP 17; TEMP 98.2
[2023-05-21] MEDS: VIT A,C & E-LUTEIN-MINERALS 1 EACH TAB PO SCH (08:55)
[2023-05-21] MEDS: ESCITALOPRAM 20 MG TAB PO SCH (08:55)
[2023-05-21 09:00] LABS: BUN/Creat Ratio 15.57 Ratio (12.00-20.00); Blood Urea Nitrogen 10.9 mg/dL (9.0-27.0); Calcium 8.7 mg/dL (8.7-10.3); Carbon Dioxide 23.2 mmol/L (21.6-31.8); Chloride 107 mmol/L (96-109); Glucose 124 mg/dL (70-110); Potassium 4.3 mmol/L (3.5-5.5); Sodium 140 mmol/L (135-145)
[2023-05-21] MEDS ORDERED: ENOXAPARIN 40 MG/0.4 ML SYRINGE SQ SCH (09:00)
[2023-05-21 09:13] LABS: Basophils # (A) 0.02 X 10*3/uL (0.00-0.10); Basophils % (A) 0.3 %; Eosinophils # (A) 0 X 10*3/uL (0.04-0.35); Eosinophils % (A) 0 %; HCT 35.9 % (37.2-46.3); HGB 11.4 g/dL (12.0-15.0); Lymphocytes # (A) 0.87 X 10*3/uL (0.90-5.00); Lymphocytes % (A) 11.6 %; MCH 28.9 pg (27.0-32.0); MCHC 31.8 g/dL (32.0-37.0); MCV 90.9 FL (80.0-97.0); Mean Platelet Volume 12.8 FL (9.5-12.2); Monocytes % (A) 13.3 %; NRBC Per 100 WBC 0 X 10*3/uL (0.00-0.01); Neutrophils # (A) 5.59 X 10*3/uL (1.80-7.70); Neutrophils % (A) 74.1 %; Platelet Count 232 X 10*3/uL (140-440); RBC 3.95 X 10*6/uL (4.10-5.20); RDW 15.1 % (11.5-14.5); WBC 7.53 X 10*3/uL (4.50-10.00)
--- NOTE | 2023-05-21 12:21 | P.DS ---
Providers Date of admission: 05/19/23 16:58 Expected date of discharge: 05/21/23 Attending physician: Dwayne Zhou Consults: 05/19/23 20:31 Consult Physician Routine Consulting Provider: Soledad Washington Consult Reason/Comments: medical management Do you want consulting provider notified?: Yes, Notify in am Primary care physician: Antoine Channing Home Course: Discharge diagnoses 1. Symptomatic Cholelithiasis status post laparoscopic cholecystectomy Hospital course This is a 82-year-old female who presented to the hospital with complaint of worsening right upper quadrant abdominal pain for the last 3 months. Patient reports that the pain is worse after eating. She had an abdominal ultrasound on 05/12/2023 that reported cholelithiasis. Patient is status post laparoscopic cholecystectomy for symptomatic cholelithiasis. Patient is tolerating diet. Her pain is controlled. She is having flatus. She has been up and ambulate in. She is afebrile. She is stable for discharge. Please refer to chart for any further details. [facility] note has been reviewed by physician. Signing provider agrees with the documented findings, assessment, and plan of care. Patient Condition at Discharge: Stable Plan - Discharge Summary New Discharge Prescriptions: New Ibuprofen [Motrin] 600 mg PO Q8HR PRN #30 tab PRN Reason: Pain HYDROcodone/APAP 5-325MG [[place] 5-325] 1 tab PO Q6HR PRN 3 Days #12 tab PRN Reason: Pain Continue Simvastatin [Zocor] 20 mg PO HS Triamterene-Hctz 37.5-25Mg [Dyazide 37.5-25 Capsule] 1 cap PO DAILY PRN PRN Reason: Edema ALPRAZolam [Xanax] 0.25 mg PO BID PRN PRN Reason: Anxiety Aspirin 81 mg PO HS QUEtiapine [SEROquel] 50 mg PO HS Escitalopram [Lexapro] 20 mg PO DAILY Vit C/E/Zn/Coppr/Lutein/Zeaxan [Preservision Areds 2 Softgel] 1 cap PO DAILY Cholecalciferol [Vitamin D3 (125 Mcg = 5000 Iu)] 125 mcg PO HS Discharge Medication List Simvastatin [Zocor] 20 mg PO HS 01/31/15 [History] Triamterene-Hctz 37.5-25Mg [Dyazide 37.5-25 Capsule] 1 cap PO DAILY PRN 01/31/15 [History] ALPRAZolam [Xanax] 0.25 mg PO BID PRN 09/22/18 [History] Aspirin 81 mg PO HS 05/19/23 [History] Cholecalciferol [Vitamin D3 (125 Mcg = 5000 Iu)] 125 mcg PO HS 05/19/23 [History] Escitalopram [Lexapro] 20 mg PO DAILY 05/19/23 [History] QUEtiapine [SEROquel] 50 mg PO HS 05/19/23 [History] Vit C/E/Zn/Coppr/Lutein/Zeaxan [Preservision Areds 2 Softgel] 1 cap PO DAILY 05/19/23 [History] HYDROcodone/APAP 5-325MG [[place] 5-325] 1 tab PO Q6HR PRN 3 Days #12 tab 05/21/23 [Rx] Ibuprofen [Motrin] 600 mg PO Q8HR PRN #30 tab 05/21/23 [Rx] Follow up Appointment(s)/Referral(s): Antoine Rojo DO [Primary Care Provider] - 1-2 days Dwayne Zhou MD [STAFF PHYSICIAN] - 1 Week Activity/Diet/Wound Care/Special Instructions: No driving while taking [place] No lifting over 10 pounds Shower daily. No soaking or tub baths for 2 weeks Very light activity until you are reevaluated at your follow up appointment with your surgeon Discharge Disposition: HOME SELF-CARE
--- NOTE | 2023-05-22 09:17 | P.PN ---
Subjective Progress Note Date: 05/21/23 - Reason for Consult Consult date: 05/20/23 Medical management, cholelithiasis - History of Present Illness - Reason for Consult Consult date: 05/19/23 Medical management, cholelithiasis - History of Present Illness This is a very pleasant 82-year-old female who was admitted under Gen. surgery services having right upper quadrant abdominal pain that had been ongoing and patient was having increased pain after eating and has been having difficulties. Patient with a known history of gallstones and continued to have worsening pain with no relief. Patient scheduled to undergo laparoscopic cholecystectomy sometime today and currently pending at this time. Patient is nothing by mouth. Patient reports she follows with Dr. Johnson in the outpatient setting with a past medical history of hyperlipidemia, hypertension, previous kidney stones, diverticular disease, admits to smoking and denies any other illicit drug use or alcohol use. 05/21/2023 Patient is seen in follow-up this morning status post laparoscopic cholecystectomy and did relatively well. Patient reports he is having no further pain after eating and has been tolerating diet. No reports of nausea or vomiting. Patient reports passing gas with no bowel movement as of yet. Patient is waiting with no difficulties. Patient with incentive spirometer at the bedside encouraged to continue using at least 10 times every hour as well as taking home. Patient again has been encouraged complete smoking cessation. Plan is for discharge home today. Patient is afebrile with no reported chest pain or shortness of breath. Patient is medically stable for discharge home today. Review of systems: Constitutional: No reports of fatigue, fever, or chills Cardiovascular: No reports of chest pain or palpitations Respiratory: No reports of shortness of breath or cough GI: No reports of nausea, vomiting, or diarrhea, reports passing gas, reports no abdominal pain : No reports of dysuria or retention Neurovascular: No reports of weakness or numbness All medications have been reviewed PHYSICAL EXAMINATION: GENERAL: The patient is awake, alert and oriented x3, Well developed, well nour ished. Elderly-appearing HEENT: Pupils are round and equally reacting to light. EOMI. no scleral icterus. No conjunctival pallor. Normocephalic, atraumatic. No pharyngeal erythema. No thyromegaly. CARDIOVASCULAR: S1 and S2 muffled PULMONARY: diminished breath sounds bilaterally otherwise clear to auscultation with no wheezing or rhonchi noted. ABDOMEN: soft. Nontender, surgical sites are clean dry and intact . obese. non-distended, normoactive bowel sounds. No palpable organomegaly. MUSCULOSKELETAL: No joint swelling or deformity. EXTREMITIES: No cyanosis, clubbing, or pedal edema. NEUROLOGICAL: Gross neurological examination did not reveal any focal deficits. SKIN: No rashes. Assessment: Cholelithiasis, symptomatic with right upper quadrant pain after eating, known history of gallstones and is post laparoscopic cholecystectomy, postop day 1 History of hyperlipidemia Hypertension history Continued ongoing nicotine abuse History of anxiety/depression GI prophylaxis DVT prophylaxis Full code Plan: Recommend to continue with current medications and management per general surgery services. Patient is postop laparoscopic cholecystectomy day when doing well Patient tolerating diet and reports no pain after eating. Reports to passing gas with no bowel movement as of yet denies any nausea or vomiting Recommend incentive spirometer and encourage the patient use at least 10 times every hour while awake Encouraged increased activity as tolerated Home medications reviewed and resumed as appropriate Patient is medically stable for discharge today We will continue to follow with orthopedics during hospitalization. Thank you kindly for this consultation. The impression and plan of care has been dictated by Adriana Eugene, nurse practitioner as directed. Dr. Joaquín MD I have performed a history and examination and MDM of this patient, discussed the same with the dictator, and agree with the dictator's assessment and plan as written ,documented as a scribe. Based on total visit time, I have performed more than 50% of the visit. Any additional findings or plans will be noted. Objective - Vital Signs Vital signs: Vital Signs Temp 98.2 F 05/21/23 07:40 Pulse 76 05/21/23 07:40 Resp 17 05/21/23 08:00 BP 158/67 05/21/23 07:40 Pulse Ox 98 05/21/23 07:40 FiO2 Intake & Output 05/20/23 05/21/23 05/21/23 18:59 06:59 18:59 Intake Total 1000 500 Output Total 5 Balance 995 500 Intake: IV 1000 Oral 500 Output: Estimated Blood Loss 5 Other: Voiding Method Toilet # Voids 2 1 - Labs CBC & Chem 7: 05/21/23 04:15 05/21/23 04:15 Labs: Abnormal Lab Results - Last 24 Hours (Table) 05/21/23 05/21/23 Range/Units 04:15 04:15 RBC 3.95 L (4.10-5.20) X 10*6/uL Hgb 11.4 L (12.0-15.0) g/dL Hct 35.9 L (37.2-46.3) % MCHC 31.8 L (32.0-37.0) g/dL RDW 15.1 H (11.5-14.5) % MPV 12.8 H (9.5-12.2) FL Lymphocytes # 0.87 L (0.90-5.00) X 10*3/uL Eosinophils # 0 L (0.04-0.35) X 10*3/uL Glucose 124 H (70-110) mg/dL
== END 2023-05-21 13:32 | disposition home or self-care (01) ==
LOC: EC 13:13 → 6NMEDSUR 16:58
PROVIDERS: ADMIT Surgery; ATTEND Surgery
DX: K81.1 Chronic cholecystitis (principal); I10 Essential (primary) hypertension; E78.5 Hyperlipidemia, unspecified; K57.90 Diverticulosis of intestine, part unspecified, without perforation or abscess without bleeding; F17.210 Nicotine dependence, cigarettes, uncomplicated; F32.A Depression, unspecified; F41.9 Anxiety disorder, unspecified; Z79.51 Long term (current) use of inhaled steroids; Z79.82 Long term (current) use of aspirin; Z79.899 Other long term (current) drug therapy; Z88.0 Allergy status to penicillin; Z91.81 History of falling; Z87.11 Personal history of peptic ulcer disease; Z87.442 Personal history of urinary calculi; Z90.710 Acquired absence of both cervix and uterus; Z90.49 Acquired absence of other specified parts of digestive tract; Z86.010 Personal history of colon polyps; Z98.890 Other specified postprocedural states; Z82.49 Family history of ischemic heart disease and other diseases of the circulatory system; Z80.9 Family history of malignant neoplasm, unspecified
CPT/HCPCS: 47562; 96372; 96374; 99285; 36415; 93005; 88304; 80053; 80048; 82150; 83605; 83690; 85025 ×2; 85610; 85730; 81001; G0378 ×2; J0330; J1644; J1100; J2710; J0690; J2405; J2001; J1650; J3010; J3490; J1170; J1885 ×2; J2704; J0665

== ENCOUNTER → 2023-12-22 | Outpatient (CLI) | payer MEDICARE ==
--- NOTE | 2023-12-22 15:07 | US ---
EXAMINATION TYPE: US carotid duplex BILAT DATE OF EXAM: 12/22/2023 COMPARISON: NONE CLINICAL INDICATION: Female, 83 years old with history of H54.7 UNSPECIFIED VISUAL LOSS; Patient ammy es any other signs, symptoms, or relevant history TECHNIQUE: Carotid duplex ultrasound examination. Indirect Doppler criteria was utilized. FINDINGS: EXAM MEASUREMENTS: RIGHT: Peak Systolic Velocity (PSV) cm/sec ----- Right CCA: 74 ----- Right ICA: 90 ----- Right ECA: 132 ICA/CCA ratio: 1.2 RIGHT: End Diastole cm/sec ----- Right CCA: 9 ----- Right ICA: 13 ----- Right ECA: 12 LEFT: Peak Systolic Velocity (PSV) cm/sec ----- Left CCA: 103 ----- Left ICA: 137 ----- Left ECA: 160 ICA/CCA ratio: 1.3 LEFT: End Diastole cm/sec ----- Left CCA: 9 ----- Left ICA: 9 ----- Left ECA: 16 VERTEBRALS (direction of flow): Right Vertebral: Antegrade Left Vertebral: Antegrade Rhythm: Normal PUBLIC HEALTH ADMINISTRATOR NOTES: Plaque noted Left CCA bulb and extending into the ICA, elevated velocities within the right ECA, left ICA and left ECA. IMPRESSION: 1. Approximately 50-69% stenosis at the origin of the left internal carotid artery based on peak syst olic velocity. 2. Less than 50% stenosis at the origin of the right internal carotid artery. Criteria for Assigning % of Stenosis / Diameter reduction (Estimation based on the indirect measurements of the internal carotid artery velocities (ICA PSV). 1. Normal (no stenosis)=ICA PSV < 125 cm/s: ratio < 2.0: ICA EDV<40 cm/s. 2. Less than 50% stenosis=ICA PSV < 125 cm/s: ratio < 2.0: ICA EDV<40 cm/s. 3. 50 to 69% stenosis=ICA PSV of 125 to 230 cm/s: ration 2.0 ? 4.0: ICA EDV 40-100 cm/s. 4. Greater than 70% stenosis to near occlusion= ICA PSV > 230 cm/s: ratio > 4.0: ICA EDV > 100 cm/s. 5. Near occlusion= ICA PSV velocities may be low or undetectable: variable ratio and ICA EDV. 6. Total occlusion=unable to detect flow.
--- NOTE | 2023-12-22 18:31 | CA ---
Transthoracic Echo Report Name: Iris Kohli Age: 83 Gender: F : 1940 Exam Date: 12/22/2023 15:09 Exam Location: [facility] Ht (in): 65 Wt (lb): 129 Ordering Physician: Antoine Rojo DO Attending/Referring Phys: Antoine Rojo DO Die Cast Technician Mackenzie Carvajal RDCS Procedure CPT: Indications: H54.7 UNSPECIFIED VISUAL LOSS Cardiac Hx: Technical Quality: Good Contrast 1: Total Dose (mL): Contrast 2: Total Dose (mL): MEASUREMENTS (Male / Female) Normal Values 2D ECHO LV Diastolic Diameter PLAX 4.0 cm 4.2 - 5.9 / 3.9 - 5.3 cm LV Systolic Diameter PLAX 2.0 cm IVS Diastolic Thickness 1.1 cm 0.6 - 1.0 / 0.6 - 0.9 cm LVPW Diastolic Thickness 1.1 cm 0.6 - 1.0 / 0.6 - 0.9 cm LV Relative Wall Thickness 0.5 RV Internal Dim ED PLAX 1.5 cm LA Systolic Diameter LX 2.7 cm 3.0 - 4.0 / 2.7 - 3.8 cm LV Diastolic Volume MOD BP 42.5 cm??? 67 - 155 / 56 - 104 cm??? LV Systolic Volume MOD BP 11.7 cm??? 22 - 58 / 19 - 49 cm??? LV Ejection Fraction MOD BP 72.3 % >= 55 % LV Diastolic Volume MOD 4C 42.6 cm??? LV Systolic Volume MOD 4C 12.3 cm??? LV Ejection Fraction MOD 4C 71.0 % LV Diastolic Length 4C 6.4 cm LV Systolic Length 4C 4.9 cm LV Diastolic Volume MOD 2C 39.6 cm??? LV Systolic Volume MOD 2C 10.8 cm??? LV Ejection Fraction MOD 2C 72.8 % LV Diastolic Length 2C 5.9 cm LV Systolic Length 2C 4.7 cm LA Volume 32.4 cm??? 18 - 58 / 22 - 52 cm??? LA Volume Index 19.8 cm???/m??? 16 - 28 cm???/m??? M-MODE Aortic Root Diameter MM 2.8 cm LA Systolic Diameter MM 3.3 cm LA Ao Ratio MM 1.2 AV Cusp Separation MM 1.8 cm DOPPLER MV Area PHT 2.6 cm??? Mitral E Point Velocity 79.3 cm/s Mitral A Point Velocity 111.6 cm/s Mitral E to A Ratio 0.7 MV Deceleration Time 297.2 ms TR Peak Velocity 249.9 cm/s TR Peak Gradient 25.0 mmHg Right Ventricular Systolic Press 29.3 mmHg FINDINGS Left Ventricle Left ventricular ejection fraction is estimated at 55-60 %. Mildly increased septal wall thickness. Mildly increased posterior wall thickness. Left ventricular cavity size normal. No obvious regional wall motion abnormalities. Right Ventricle Normal right ventricular size and function. Right ventricular systolic pressure within normal limits. Right Atrium Normal right atrial size. Left Atrium Normal left atrial size. Mitral Valve Structurally normal mitral valve. Mild mitral regurgitation. No mitral stenosis. Aortic Valve Trileaflet aortic valve. No aortic valve stenosis or regurgitation. Tricuspid Valve Structurally normal tricuspid valve. Mild tricuspid regurgitation. No tricuspid stenosis. Pulmonic Valve Structurally normal pulmonic valve. Trace pulmonic regurgitation. Pericardium No pericardial or pleural effusion. Aorta Normal size aortic root and proximal ascending aorta. CONCLUSIONS Preserved LV send stomach function Previewed by: Dr. Lui Brandon MD (Electronically Signed) Final Date: 22 December 2023 18:30
== END | disposition home or self-care (01) ==
LOC: RADUSWWP 14:20
PROVIDERS: ATTEND Family Medicine
DX: I65.23 Occlusion and stenosis of bilateral carotid arteries (principal); H54.7 Unspecified visual loss
CPT/HCPCS: 93306; 93880

== ENCOUNTER → 2024-01-05 | Outpatient (CLI) | payer MEDICARE ==
--- NOTE | 2024-01-20 16:12 | P.CEMON ---
14 Day Event monitor note: Patient wore an event monitor for 13 days from 01/05/24-01/18/24. Findings: Patient's baseline heart rate was normal sinus rhythm. There were no signficant atrial fibrillation, atrial flutter, or ventricular tachycardia episodes. There were no significant pauses greater than 2 seconds. Minimum heart rate 50 bpm Maximum heart rate 120 bpm Average heart rate 71 bpm There were rare asymptomatic PVCs and PACs less than 1% 28 patient activated events corresponded with normal sinus rhythm Conclusions: 14 day event monitor showing normal sinus rhythm and rare PACs and PVCs which were asymptomatic. Patient activated events corresponding with normal sinus rhythm.
--- NOTE | 2024-01-22 12:20 | EM ---
Patient wore an event monitor for 13 days from 01/05/24-01/18/24. Findings: Patient's baseline heart rate was normal sinus rhythm. There were no significant atrial fibrillation, atrial flutter, or ventricular tachycardia episodes. There were no significant pauses greater than 2 seconds. Minimum heart rate 50 bpm Maximum heart rate 120 bpm Average heart rate 71 bpm There were rare asymptomatic PVCs and PACs less than 1% 28 patient activated events corresponded with normal sinus rhythm Conclusions: 14 day event monitor showing normal sinus rhythm and rare PACs and PVCs which were asymptomatic. Patient activated events corresponding with normal sinus rhythm. [facility]
== END | disposition home or self-care (01) ==
LOC: RADECHMAIN 07:25
PROVIDERS: ATTEND Family Medicine
DX: I49.3 Ventricular premature depolarization (principal); I49.1 Atrial premature depolarization; H54.7 Unspecified visual loss
CPT/HCPCS: 93270